=== PATIENT | male | born 1950 | race Two or more races ===

== ENCOUNTER 2019-12-18 11:36 | Outpatient (CLI) | payer MEDICARE, OTHER, SELFPAY ==
--- NOTE | 2019-12-18 12:33 | ECG_ITS ---
Measurements Intervals [place] Rate: 69 P: 203 AK: 112 QRS: -16 QRSD: 98 T: 15 QT: 402 QTc: 431 Interpretive Statements SINUS RHYTHM WITH SHORT AK INTERVAL BASELINE ARTIFACT- I, II, III, AVR, AVL, AVF BORDERLINE ECG Electronically Signed On 12-18-2019 13:52:49 CIPHER EXPERT by Darrian Villegas D.O.
[2019-12-18 13:02] LABS: Anion Gap 8 mmol/L (8-16); Blood Urea Nitrogen 20 mg/dL (9-20); Calcium 9.7 mg/dL (8.4-10.2); Carbon Dioxide 27 mmol/L (22-30); Chloride 105 mmol/L (98-107); Estimated Glomerular Filt Rate 55; Glucose 101 mg/dL (75-110); Potassium 4.2 mmol/L (3.4-5.0); Sodium 140 mmol/L (137-145)
[2019-12-18 13:20] LABS: Hemoglobin A1C 4.7 % (<5.7)
== END 2019-12-18 11:37 | disposition home or self-care (01) ==
PROVIDERS: Anesthesiology; PCP Internal Medicine; Visit Provider Urology
DX: E11.9 Type 2 diabetes mellitus without complications (principal); N52.9 Male erectile dysfunction, unspecified; Z51.81 Encounter for therapeutic drug level monitoring; Z79.899 Other long term (current) drug therapy
CPT/HCPCS: 36415; 80048; 83036; 87086; 87088; 93005

== ENCOUNTER 2020-01-13 00:31 | Outpatient (CLI) | payer MEDICARE, OTHER, SELFPAY ==
[2020-01-13 19:13] LABS: SARS-CoV-2 RNA PCR Negative
== END 2020-01-13 00:32 | disposition home or self-care (01) ==
LOC: ANHCOVIDDT 00:32
PROVIDERS: PCP Internal Medicine; Visit Provider Urology
DX: Z01.818 Encounter for other preprocedural examination (principal); Z20.828 Contact with and (suspected) exposure to other viral communicable diseases
CPT/HCPCS: 87635; C9803; U0003

== ENCOUNTER 2020-01-17 00:38 | Day surgery (SDC) | payer MEDICARE, OTHER, SELFPAY ==
[2019-12-18 12:06] VITALS: BP 164/90; PULSE 78; RESP 20; TEMP 36.7; O2SAT 98; BMI 27.0
--- NOTE | 2020-01-16 09:38 | WPDANESEPPF ---
Anes - Initial Pre Proc Eval Procedure: Operation Date: 01/17/20 10:30 Proposed Procedures p Insertion Inflatable Penile Prosthesis - Arthur Fenton MD Date/Time: 01/16/20 09:38 Surgeon: Arthur Fenton MD Pre Op Diagnosis: ED Patient Data Age: 69 Gender: M Height: 1.78 m Weight: 85.5 kg Last Vital Signs Temp 36.7 C 12/18/19 12:06 Pulse 78 12/18/19 12:06 Resp 20 12/18/19 12:06 BP 164/90 H 12/18/19 12:06 Pulse Ox 98 12/18/19 12:06 Allergies Allergy/AdvReac Type Severity Reaction Status Date / Time zolpidem AdvReac Unknown Hallucinati Verified 01/17/20 09:15 ng Home Medications Medication Instructions Recorded Confirmed Type atorvastatin 40 mg tablet 40 mg PO DAILY 05/08/19 01/17/20 History clopidogrel 75 mg tablet 75 mg PO DAILY 05/08/19 01/17/20 History hydralazine 50 mg tablet 50 mg PO DAILY 05/08/19 01/17/20 History aspirin [Aspirin Low-Strength] 81 mg PO DAILY 12/18/19 01/17/20 History ssdbjfkjd-gekyqvkp-jql-hyalur 1 tablet PO DAILY 12/18/19 01/17/20 History [Move Free Ultra Triple Action] folic acid 1 mg PO DAILY 12/18/19 01/17/20 History glipizide 2.5 mg PO DAILY 12/18/19 01/17/20 History multivitamin [Multi-Vitamins] 1 tablet PO DAILY 12/18/19 01/17/20 History ECG: Date of Service: 12/18/19 Procedure(s): CA 12 lead EKG Accession Number(s): [id number] cc: ~ Measurements Intervals [place] Rate: 69 P: 203 DE: 112 QRS: -16 QRSD: 98 T: 15 QT: 402 QTc: 431 Interpretive Statements SINUS RHYTHM WITH SHORT DE INTERVAL BASELINE ARTIFACT- I, II, III, AVR, AVL, AVF BORDERLINE ECG Electronically Signed On 12-18-2019 13:52:49 GOAT HERDER by Darrian Villegas D.O. 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 Diabetes Former smoker HTN (hypertension) Hypercholesterolemia Osteoarthritis SOB (shortness of breath) Surgical History Surgical History (Updated 01/16/20 @ 09:40 by Rober Briggs MD) S/P CABG (coronary artery bypass graft) Family History Family History (System 03/08/19 @ 16:26 by Yeny Arango) Other Family history of congenital heart disease Social History Social History (Updated 05/08/19 @ 14:28 by Edison Rodrigues [facility]) Smoking packs per day: 1 Smoking cigarettes per day: 20.0 Years smoked: 24 Smoking pack-years: 24.00 Smoking status: Former smoker Tobacco type: cigarettes Smoking end date: 02/09/92 Additional smoking assessment comments: STATES 1 1/2PK/DAY/15/YRS QUIT 1975 Alcohol intake: current Drinks per week: 21 Substance use: never Living arrangements: with family Spiritual care concerns: No Anes - Eval Final PreProcedure Day of Procedure 01/16/20 09:38 Patient weight: overweight Heart: regular rate and rhythm Lungs: clear to auscultation and normal air movement Airway: Mallampati scale class II Neurological: alert and oriented Last oral intake: >/= 8 hours ASA classification: III Emergent: no Anesthetic plan: proceed Anesthesia type and monitoring: general ETT Informed Consent: The patient's anesthetic plan and its attendant risks and benefits were discussed with the patient/family/POA. Questions were solicited and answers provided to the satisfaction of the patient/family/POA.
[2020-01-17] VITALS (10 sets, daily range): BP systolic 145–163; BP diastolic 77–90; PULSE 60–76; RESP 10–20; TEMP 36–36.3; O2SAT 97–100
[2020-01-17] MEDS: LACTATED RINGERS 1,000 ML 30 ML IV CONT ×2 (09:25→13:52)
[2020-01-17 09:36] LABS: Glucose Point of Care 116 (65-105)
--- NOTE | 2020-01-17 10:49 | WPDHPUPDATE1 ---
History and Physical Update Update Date/Time: 01/17/20 10:49 History and Physical has been reviewed, including an updated exam of the patient. There are NO changes in the patient's condition. Risks, benefits, and alternatives have been discussed and questions answered. Patient agrees to proceed with procedure.
[2020-01-17] MEDS: GENTAMICIN SULFATE INJ 430 MG in DEXTROSE 5% 100 ML 100 MG IVPB (10:55)
[2020-01-17] MEDS: LIDOCAINE HCL 1% LOCAL INJ 20 ML VIAL INFILTRATE (12:25)
[2020-01-17] MEDS: fentaNYL CITRATE INJ (*CRX) 100 MCG/2 ML VIAL 25 MCG IV PUSH ×4 (14:07→14:31)
--- NOTE | 2020-01-17 14:46 | PM.PROC ---
Procedure Note - Detailed Date of procedure: 01/17/20 Pre-op diagnosis: ED Post-op diagnosis: same Description of procedure: . Anesthesia: GETA Surgeon: Arthur Fenton MD Estimated blood loss (mL): 50 Drains: No Packing: No Pathology: none sent Complications: No immediate complications Condition: stable Disposition: PACU
[2020-01-17 14:54] LABS: Glucose Point of Care 120 (65-105)
[2020-01-17] MEDS: traMADol HCL (*CRX) 50 MG TABLET PO (16:00)
--- NOTE | 2020-01-17 17:34 | SUR.PHASEII ---
PATIENT INSTRUCTED HOW TO EMPTY REY CATHETER BAG. PT RETURNED DEMONSTRATION.
== END 2020-01-17 16:55 | disposition home or self-care (01) ==
PROVIDERS: PCP Internal Medicine; Visit Provider Urology
PROC: (CPT 54405; principal; 2020-01-17 10:30)
DX: N52.9 Male erectile dysfunction, unspecified (principal); I25.10 Atherosclerotic heart disease of native coronary artery without angina pectoris; E11.9 Type 2 diabetes mellitus without complications; I10 Essential (primary) hypertension; E78.00 Pure hypercholesterolemia, unspecified; Z87.891 Personal history of nicotine dependence; Z95.1 Presence of aortocoronary bypass graft; Z79.02 Long term (current) use of antithrombotics/antiplatelets; Z79.82 Long term (current) use of aspirin
CPT/HCPCS: 54405; A9270; J0330; J1100; J1170; J1580; J2250; J2370; J2405; J2704; J3010; J3370; J7030; J7120

== ENCOUNTER 2020-08-16 07:58 | Emergency (ER) | payer MEDICARE, OTHER, SELFPAY ==
--- NOTE | ~2020-08-16 | US_ITS ---
EXAMINATION: US venous doppler LE RT DATE: 08/16/2020 08:53 INDICATION: Right calf pain. TECHNIQUE: Grayscale ultrasound images without and with compression and Doppler ultrasound images of the right lower extremity veins were obtained. COMPARISON: None. FINDINGS: The visualized portions of right common femoral vein, profunda (deep) femoral vein, femoral vein, pop liteal vein, peroneal veins, posterior tibial veins, and greater saphenous vein outflow are patent. IMPRESSION: 1. No deep venous thrombosis. Reviewed, dictated and finalized at location A.
[2020-08-16 08:06] VITALS: BP 128/80; PULSE 80; RESP 20; TEMP 36.8; O2SAT 98
--- NOTE | 2020-08-16 10:10 | ED.EXTPRO ---
HPI - Extremity Problem General Chief complaint: Extremity Problem,Nontraumatic Stated complaint: x1 day R calf pain, no injury Time Seen by Provider: 08/16/20 08:06 History of Present Illness HPI Narrative: Patient is a 7-year-old male who presents ER with right calf pain. Patient reports he struck his right garcia about 1 week ago and had significant bruising. Yesterday he was walking and started having sharp pain in his proximal calf. No lower extremity swelling. No chest pain or chest pressure or difficulty breathing. No history of blood clots. He is not on any blood thinners but he does take Plavix. No functional deficit of the lower extremity. No swelling of the ankle or knee. Related Data Home Medications Medication Instructions Recorded Confirmed atorvastatin 40 mg tablet 40 mg PO DAILY 05/08/19 01/17/20 clopidogrel 75 mg tablet 75 mg PO DAILY 05/08/19 01/17/20 hydralazine 50 mg tablet 50 mg PO DAILY 05/08/19 01/17/20 aspirin 81 mg PO DAILY 12/18/19 01/17/20 oidxcoicr-xmzwgrkh-pdx-hyalur 1 tablet PO DAILY 12/18/19 01/17/20 [Move Free Ultra Triple Action] folic acid 1 mg PO DAILY 12/18/19 01/17/20 glipizide 2.5 mg PO DAILY 12/18/19 01/17/20 multivitamin 1 tablet PO DAILY 12/18/19 01/17/20 Allergies Allergy/AdvReac Type Severity Reaction Status Date / Time zolpidem AdvReac Unknown Hallucinati Verified 08/16/20 08:10 ng Review of Systems Review of Systems: All systems reviewed & are unremarkable except as noted in HPI and below Constitutional: Constitutional: Denies chills and Denies fever(s) Cardiovascular: Cardiovascular: Denies chest pain and Denies radiating jaw, neck or arm pain Respiratory: Respiratory: Denies dyspnea Musculoskeletal: Musculoskeletal: Denies arthralgias, Denies joint swelling and Reports muscle cramps PMFSH Past Medical History Medical History (Updated 08/16/20 @ 10:12 by Moody Sanches MD) CAD (coronary artery disease) Coronary artery disease involving autologous artery coronary bypass graft with angina pectoris Diabetes Former smoker HTN (hypertension) Hypercholesterolemia Osteoarthritis SOB (shortness of breath) Surgical History Surgical History (Updated 01/16/20 @ 09:40 by Rober Briggs MD) S/P CABG (coronary artery bypass graft) Family History Family History (System 03/08/19 @ 16:26 by Yeny Arango) Other Family history of congenital heart disease Social History Social History (Updated 05/08/19 @ 14:28 by Edison Rodrigues [facility] [address]) Smoking packs per day: 1 Smoking cigarettes per day: 20.0 Years smoked: 24 Smoking pack-years: 24.00 Smoking status: Former smoker Tobacco type: cigarettes Smoking end date: 02/09/92 Additional smoking assessment comments: STATES 1 1/2PK/DAY/15/YRS QUIT 1975 Alcohol intake: current Drinks per week: 21 Substance use: never Gender identity (if verbalized by the patient): Male Spiritual care concerns: No Exam Narrative: Exam Narrative: GENERAL: Well-appearing, well-nourished, and in no acute distress. HEAD: Normocephalic, atraumatic. CHEST: Clear to auscultation. No respiratory distress. HEART: Regular rate and rhythm. Normal peripheral pulses. EXTREMITIES: Normal range of motion. No edema. Mild tenderness posterior calf right side without palpable spasm. Bruising over the right garcia without break in skin. SKIN: Warm, dry, no rash. NEURO: Alert and oriented x3. PSYCH: Normal mood and affect. Course Course Emergency Course: Discussed diagnosis and treatment plan. Patient verbalized understanding. Discharge home. Vital Signs Vital signs: Vital Signs Temperature 98.2 F 08/16/20 08:06 Pulse Rate 80 08/16/20 08:06 Respiratory Rate 20 08/16/20 08:06 Blood Pressure 128/80 08/16/20 08:06 Pulse Oximetry 98 08/16/20 08:06 Temperature 98.2 F 08/16/20 08:06 Pulse Rate 80 08/16/20 08:06 Respiratory Rate 20 08/16/20 08:06 Blood Pressure 128/80 07/0
[2020-08-16 10:20] VITALS: BP 137/83; PULSE 63; RESP 20; O2SAT 99
== END 2020-08-16 10:22 | disposition home or self-care (01) ==
PROVIDERS: Emergency Provider Emergency Medicine; PCP Internal Medicine
DX: S86.911A Strain of unspecified muscle(s) and tendon(s) at lower leg level, right leg, initial encounter (principal); I25.10 Atherosclerotic heart disease of native coronary artery without angina pectoris; E11.9 Type 2 diabetes mellitus without complications; I10 Essential (primary) hypertension; E78.00 Pure hypercholesterolemia, unspecified; M19.90 Unspecified osteoarthritis, unspecified site; Z95.1 Presence of aortocoronary bypass graft; Z79.82 Long term (current) use of aspirin; Z87.891 Personal history of nicotine dependence; Z79.02 Long term (current) use of antithrombotics/antiplatelets; X50.9XXA Other and unspecified overexertion or strenuous movements or postures, initial encounter; Y93.01 Activity, walking, marching and hiking
CPT/HCPCS: 93971; 99284

== ENCOUNTER 2021-10-16 10:54 | Emergency (ER) | payer MEDICARE, OTHER, SELFPAY ==
--- NOTE | ~2021-10-16 | US_ITS ---
EXAMINATION: US venous doppler [facility] DATE: 10/16/2021 13:04 INDICATION: Left lower limb pain. TECHNIQUE: Grayscale ultrasound images without and with compression and Doppler ultrasound images of the left lower extremity veins were obtained. COMPARISON: Left knee radiographs 10/16/2021 FINDINGS: The visualized portions of left common femoral vein, profunda (deep) femoral vein, femoral vein, popl iteal vein, peroneal veins, posterior tibial veins, and greater saphenous vein outflow are patent. Th ere is a small knee joint effusion. IMPRESSION: 1. No deep venous thrombosis. 2. Small knee joint effusion. Reviewed, dictated and finalized at location A.
--- NOTE | ~2021-10-16 | XR_ITS ---
EXAMINATION: XR knee LT 3V DATE: 10/16/2021 11:49 INDICATION: Left knee pain. TECHNIQUE: 3 views of left knee were obtained. COMPARISON: None. FINDINGS: Bone alignment is normal. No fracture. There is serpiginous sclerosis in distal femur and p roximal tibia, consistent with osteonecrosis. There is mild tricompartmental osteoarthritis character ized by tiny osteophytes. No joint space narrowing. No knee joint effusion. IMPRESSION: 1. Mild left knee osteoarthritis. 2. Osteonecrosis involving distal femur and proximal tibia. Reviewed, dictated and finalized at location A.
[2021-10-16 11:13] VITALS: BP 160/85; PULSE 88; RESP 16; TEMP 36.8; O2SAT 98
--- NOTE | 2021-10-16 11:59 | ED.LOWEXIN ---
HPI - Extremity Injury (Lower) General Chief Complaint: Extremity Injury, Lower Stated Complaint: can't put weight on left leg Time Seen by Provider: 10/16/21 11:16 History of Present Illness HPI Narrative: 71-year-old male presents the emergency room with gradual onset of left knee pain. Patient states he woke up 2 days ago experiencing left knee pain. Patient states he is unable to ambulate due to the pain. Patient states he took ibuprofen on one occasion that did not alleviate his symptoms. Denies any known injury or trauma. Related Data Home Medications Medication Instructions Recorded Confirmed clopidogrel 75 mg tablet 75 mg PO DAILY 05/08/19 09/03/21 aspirin 81 mg tablet,delayed 81 mg PO DAILY 12/18/19 09/03/21 release cartilage 40 mg-collagen II-boron 1 tablet PO DAILY 12/18/19 09/03/21 5 mg-hyaluronate sod 3.3 mg tablet (Move Free Ultra Triple Action (boron)) folic acid 1 mg tablet 1 mg PO DAILY 12/18/19 09/03/21 multivitamin 1 tablet PO DAILY 12/18/19 09/03/21 cholecalciferol (vitamin D3) 1,250 50,000 unit PO .qoweek 09/03/21 09/03/21 mcg (50,000 unit) capsule mecobalamin (vitamin B12) 1,000 1,000 mcg sublingual DAILY 09/03/21 09/03/21 mcg disintegrating tablet,sublingual Allergies Allergy/AdvReac Type Severity Reaction Status Date / Time zolpidem AdvReac Unknown Hallucinati Verified 10/16/21 11:53 ng Review of Systems Review of Systems: CONSTITUTIONAL: Denies fever, chills, or sweats. EYES: Denies visual changes, redness, or discharge. ENT: Denies rhinorrhea, congestion, sore throat, or otalgia. CARDIOVASCULAR: Denies chest pain, palpitations, or edema. RESPIRATORY: Denies cough or dyspnea. GASTROINTESTINAL: Denies abdominal pain, nausea, vomiting, or diarrhea. GENITOURINARY: Denies dysuria or hematuria. SKIN: Denies rash or itching. MUSCULOSKELETAL: Reports left knee pain NEUROLOGIC: Denies headache, numbness, dizziness, or weakness. PSYCHIATRIC: Denies anxiety or depression. 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 Encounter to establish care Former smoker HTN (hypertension) Hypercholesterolemia Hyperlipidemia Osteoarthritis SOB (shortness of breath) Surgical History Surgical History S/P CABG (coronary artery bypass graft) Stented coronary artery Family History Family History Mother Heart disease Sibling Heart disease Grandparent Diabetes mellitus Hypertension Other Family history of congenital heart disease Social History Social History Smoking packs per day: 1 Smoking cigarettes per day: 20.0 Years smoked: 24 Smoking pack-years: 24.00 Smoking status: Former smoker Tobacco type: cigarettes Smoking end date: 02/09/92 Additional smoking assessment comments: STATES 1 1/2PK/DAY/15/YRS QUIT 1975 Alcohol intake: current Drinks per week: 21 Alcohol use details: Vodka - daily Substance use: current Gender identity (if verbalized by the patient): Male Spiritual care concerns: No Exam Narrative: GENERAL: Well-appearing, well-nourished, no physical limitations, and in no acute distress. HEAD: Normocephalic, atraumatic. EYES: Conjunctivae normal, PERRLA and EOMI. CHEST: Clear to auscultation. No respiratory distress. No wheezes rales or rhonchi. No tenderness. HEART: Regular rate and rhythm. No murmur heard. Normal peripheral pulses. BACK: Left knee: Tenderness to the popliteal area. No patellar tracking. No joint laxity. Negative Maverick's test. There neurovascular is intact distally. No
[2021-10-16 12:21] LABS: D Dimer 0.25 ug/mL (<0.48)
== END 2021-10-16 13:42 | disposition home or self-care (01) ==
PROVIDERS: Emergency Provider Nurse Practitioner Family; PCP Family Medicine
DX: M25.562 Pain in left knee (principal); I25.729 Atherosclerosis of autologous artery coronary artery bypass graft(s) with unspecified angina pectoris; I10 Essential (primary) hypertension; E11.9 Type 2 diabetes mellitus without complications; E78.00 Pure hypercholesterolemia, unspecified; E78.5 Hyperlipidemia, unspecified; E53.8 Deficiency of other specified B group vitamins; M17.12 Unilateral primary osteoarthritis, left knee; M79.605 Pain in left leg; Z95.1 Presence of aortocoronary bypass graft; Z95.5 Presence of coronary angioplasty implant and graft; Z86.2 Personal history of diseases of the blood and blood-forming organs and certain disorders involving the immune mechanism; Z79.82 Long term (current) use of aspirin; Z79.84 Long term (current) use of oral hypoglycemic drugs; M87.9 Osteonecrosis, unspecified; M25.462 Effusion, left knee
CPT/HCPCS: 36415; 73562; 85380; 93971; 99284

== ENCOUNTER → 2021-12-31 12:54 | Outpatient (CLI) | payer MEDICARE, OTHER, SELFPAY ==
--- NOTE | ~2021-12-31 | MR_ITS ---
EXAMINATION: MR knee LT wo con DATE: 12/31/2021 13:31 INDICATION: Left knee pain TECHNIQUE: Magnetic resonance imaging (MRI) of the left knee was performed without intravenous contra st. Sequences included coronal PD-weighted FSE, coronal PD-weighted FS FSE, sagittal T2-weighted FSE , sagittal PD-weighted FS FSE and axial PD weighted fat saturated FSE. COMPARISON: Left knee radiographs dated 10/16/2021 FINDINGS: Medial compartment: Radial tear/avulsion of the posterior root of the posterior horn of the medial meniscus. There is lorna rphous increased intrasubstance signal which does not contiguously contact the articular surface at t he medial side of the posterior horn and posterior body of the medial meniscus consistent with mucoid degeneration. Deep chondral ulceration with prominent chondral surface and underlying cortical irreg ularity as well as subarticular edema-like signal changes along the anterior weightbearing medial fem oral condyle. Less severe partial thickness cartilage loss with scattered mild surface regularity at the central weightbearing medial femoral condyle and along the medial tibial plateau. There is subart icular curvilinear low signal intensity underlying approximately 1.5 cm diameter region of the centra l to medial aspect of the medial tibial plateau with prominent surrounding edema consistent with nond isplaced subarticular likely a stress fracture resulting from altered weight distribution secondary t o the meniscal tear. Lateral compartment: Longitudinal horizontal tear extending to the superior articular surface of the anterior body and ant erior horn of the lateral meniscus. Articular cartilage is normal. Patellofemoral compartment: Delaminating tears along the deep bone chondral interface extending minimally peripherally from the r egion of deep chondral ulceration at the medial patellar facet along side the apical ridge. There is minimal underlying subarticular edema-like signal change. Additional small region of deep chondral ul ceration without degenerative subchondral changes at the superomedial aspect of the medial trochlea. Ligaments and tendons: Anterior and posterior cruciate ligaments are normal. The fibular collateral ligament complex is norm al. Mild thickening without increased signal or surrounding edema at the proximal medial collateral l igament consistent with mild scarring related to chronic sprain. Enthesophytes and mild tendinopathy at the patellar and intertibial tubercle insertions of the distal quadriceps and patellar tendons. Th e visualized medial and lateral hamstring tendons as well as the iliotibial band are normal. Fluid: Small left knee joint effusion. No loose osteochondral bodies identified. Small Romero's cyst. Osseous/other: Serpiginous sclerotic margins at multiple chronic bone infarcts at the proximal tibial metaphysis and distal femoral metaphysis and distal diaphysis. No other pathologic marrow replacing process. IMPRESSION: 1. Medial and lateral meniscal tears. 2. Osteoarthritis, moderate severity with extensive moderate and high-grade chondral malacia in the m edial compartment and mild with additional smaller regions of moderate and high-grade chondral malaci a in the patellofemoral compartment. 3. Subarticular stress/insufficiency fracture underlying the medial tibial plateau likely related to altered stresses patient resulting from the medial meniscal tear. 4. Chronic osteonecrosis/bone infarcts in the distal femur and proximal tibia. 5. Small left knee joint effusion and small Romero's cyst. Reviewed, dictated and finalized at location A. [place] [facility] IMPRESSION: 1. Medial and lateral meniscal tears. 2. Osteoarthritis, moderate severity with extensive moderate and high-grade cho ndral
== END ==
PROVIDERS: PCP Family Medicine; Visit Provider Orthopaedic Surgery
DX: S83.282A Other tear of lateral meniscus, current injury, left knee, initial encounter (principal); S83.242A Other tear of medial meniscus, current injury, left knee, initial encounter; M17.12 Unilateral primary osteoarthritis, left knee; M94.262 Chondromalacia, left knee; M25.462 Effusion, left knee; M71.22 Synovial cyst of popliteal space [Baker], left knee
CPT/HCPCS: 73721

== ENCOUNTER 2022-01-21 10:13 | Outpatient (CLI) | payer MEDICARE, OTHER, SELFPAY ==
--- NOTE | 2022-01-21 10:20 | ECG_ITS ---
Measurements Intervals [place] Rate: 77 P: [place]: 0 QRS: -32 QRSD: 157 T: 91 QT: 431 QTc: 490 Interpretive Statements LIKELY SINUS RHYTHM MARKED LEFT AXIS DEVIATION [QRS AXIS < -30] LEFT BUNDLE BRANCH BLOCK [120+ ms QRS DURATION, 80+ ms Q/S IN V1/V2, 85+ ms R IN I/aVL/V5/V6] COMPARED TO ECG 12/18/2019 13:06:17 LEFT-AXIS DEVIATION NOW PRESENT LEFT BUNDLE-BRANCH BLOCK NOW PRESENT Electronically Signed On 01-21-2022 13:23:23 ACADEMIC VICE PRESIDENT by Shani Vasques M.D.
[2022-01-21 10:42] LABS: Anion Gap 9 mmol/L (8-16); Blood Urea Nitrogen 19 mg/dL (9-20); Calcium 8.7 mg/dL (8.4-10.2); Carbon Dioxide 24 mmol/L (22-30); Chloride 107 mmol/L (98-107); Estimated Glomerular Filt Rate 54; Glucose 137 mg/dL (65-110); Potassium 4.1 mmol/L (3.4-5.0); Sodium 140 mmol/L (137-145)
== END 2022-01-21 10:14 | disposition home or self-care (01) ==
PROVIDERS: Anesthesiology; PCP Family Medicine; Visit Provider Orthopaedic Surgery
DX: S83.282A Other tear of lateral meniscus, current injury, left knee, initial encounter (principal); X58.XXXA Exposure to other specified factors, initial encounter; I44.7 Left bundle-branch block, unspecified
CPT/HCPCS: 36415; 80048; 93005

== ENCOUNTER 2022-01-27 00:37 | Day surgery (SDC) | payer MEDICARE, OTHER, SELFPAY ==
[2022-01-14 13:15] VITALS: BMI 26.6
--- NOTE | 2022-01-14 13:57 | PC.NURSE ---
PRE-OP INSTRUCTIONS, PLEASE READ CAREFULLY Report to the Outpatient Waiting Room, entrance under the green pavilion located off [facility], at time _1130_ on date _01/27/22_. Planned Procedure Time: _1:30 PM_. Time changes happen often and if your time is changed the preop area will call you the afternoon before. - You and your visitor will be asked to self-screen and do not enter if you have any COVID symptoms. - Only one visitor is requested with a max of two and NO children visitors are allowed at this time. - The patient visitor may be requested to leave or wait in car when not with patient due to distancing restrictions. - A mask is optional within the hospital. Patients may have clear liquids (water, carbonated beverages, clear teas, apple juice) until 3 hours prior to surgery (1030 AM) with a maximum of 20 ounces. - No food from midnight until time of surgery Take the following medications with a SIP of water the morning of surgery: _NONE_ Medications to discontinue per DR. HORNE - _ASPIRIN, CLOPIDOGREL 7 DAYS PRIOR TO SURGERY, Date to take last dose 01/19/22_ Please no deodorant, or body powder the day of surgery. No jewelry (including any body piercings) or valuables the day of surgery, leave them at home. Please take a shower or bath the night before, or the morning of, surgery with an antibacterial soap. Wear comfortable, loose fitting clothing. - Jewelry must be removed prior to entering the operating room. Rings and piercings that are not removed may be cut off. - The hospital will not accept responsibility for valuables. - Please leave all valuables, including medications, at home the day of surgery. If you are going home after surgery, a licensed auto driver must drive you home. - NO public transportation without another adult if you receive anesthesia. - We recommend that an adult stay with you for 24 hours following discharge. - We also recommend that you do not drive, make important decision, drink alcoholic beverages, or take any drugs that were not prescribed by your health care provider for at least 24 hours after your discharge time. Follow any additional instructions given to you from your surgeon. If you or anyone in your household have experienced Covid symptoms in the past week, please notify your surgeon or the nurse liaison at the phone number below for possible testing. Telephone instructions given to _PATIENT_and asked if any additional questions and then verbalized understanding. Patient advised to call surgeon office or pre surgery nurse liaison [phone] if any additional questions.
[2022-01-27] VITALS (8 sets, daily range): BP systolic 129–159; BP diastolic 70–84; PULSE 66–77; RESP 12–22; TEMP 36.8–37; O2SAT 98–100
[2022-01-27] MEDS: ACETAMINOPHEN 500 MG TABLET 1000 MG PO (11:49)
--- NOTE | 2022-01-27 12:02 | WPDANESEPPF ---
Anes - Initial Pre Proc Eval Procedure: Operation Date: 01/27/22 13:30 Proposed Procedures p Left Knee Arthroscopic Partial Medial and Lateral Meniscectomy - Trav Orellana MD Date/Time: 01/27/22 12:02 Surgeon: Trav Orellana MD Pre Op Diagnosis: Medial & Lateral Meniscus Tears Left Knee Patient Data Age: 71 Gender: M Height: 1.78 m Weight: 84.09 kg Allergies Allergy/AdvReac Type Severity Reaction Status Date / Time zolpidem AdvReac Unknown Hallucinati Verified 01/27/22 11:44 ng Home Medications Medication Instructions Recorded Confirmed Type clopidogrel 75 mg tablet 75 mg PO DAILY 05/08/19 01/27/22 History aspirin 81 mg tablet,delayed 81 mg PO DAILY 12/18/19 01/27/22 History release cartilage 40 mg-collagen II-boron 1 tablet PO DAILY 12/18/19 01/14/22 History 5 mg-hyaluronate sod 3.3 mg tablet (Move Free Ultra Triple Action (boron)) losartan 100 mg tablet 100 mg PO DAILY #30 tabs 09/03/21 01/14/22 Rx mecobalamin (vitamin B12) 1,000 1,000 mcg sublingual DAILY 09/03/21 01/14/22 History mcg disintegrating tablet,sublingual atorvastatin 40 mg tablet 100 mg PO DAILY 11/07/21 01/14/22 History folic acid 1 mg tablet 1 mg PO DAILY #90 tabs 11/17/21 01/14/22 Rx glipizide 2.5 mg tablet, extended 2.5 mg PO DAILY #90 tabs 12/09/21 01/14/22 Rx release 24 hr Patient hx anesthesia problems: none Family hx anesthesia problems: none Results Review: All pre-operative results and documents have been reviewed as part of the pre-operative evaluation. [facility] Past Medical History Medical History Anemia B12 deficiency CAD (coronary artery disease) Chronic kidney disease Coronary artery disease involving autologous artery coronary bypass graft with angina pectoris Diabetes Elevated uric acid in blood Elevated uric acid in blood Encounter to establish care Former smoker HTN (hypertension) Hypercholesterolemia Hyperlipidemia Osteoarthritis Pancytopenia SOB (shortness of breath) Surgical History Surgical History S/P CABG (coronary artery bypass graft) Stented coronary artery Family History Family History Mother Heart disease Sibling Heart disease Grandparent Diabetes mellitus Hypertension Other Family history of congenital heart disease Social History Social History Smoking packs per day: 1 Smoking cigarettes per day: 20.0 Years smoked: 24 Smoking pack-years: 24.00 Smoking status: Former smoker Tobacco type: cigarettes Second hand tobacco smoke exposure: No Smoking end date: 02/09/92 Additional smoking assessment comments: STATES 1 1/2PK/DAY/15/YRS QUIT 1974 Alcohol intake: current Drinks per week: 30 Alcohol use details: 3-4 DRINKS NIGHTLY = VODKA Substance use: never Substance use type: does not use Lack of Transportation: No Lack of Food: Never True Current Housing: I Have Housing Concerned About Future Housing: No Difficulty Paying Gas/Electric Bills: No Difficulty Paying for Meds: No Currently Unemployed: No Education: Master's Degree or Higher Difficulty w/ Childcare or Family Care: No Living arrangements: with family Gender identity (if verbalized by the patient): Male Spiritual care concerns: No Anes - Eval Final PreProcedure Day of Procedure 01/27/22 12:02 Patient weight: overweight Heart: regular rate and rhythm Lungs: clear to auscultation and normal air movement Airway: Mallampati scale class II Neurological: alert and oriented Last oral intake: >/= 8 hours ASA classification: III Emergent: no Anesthetic plan: proceed Anesthesia type and monitoring: general LMA Results Review: All pre-operative results and documents have been reviewed as part
[2022-01-27] MEDS: LACTATED RINGERS 1,000 ML 30 ML IV CONT ×2 (12:19→14:15)
[2022-01-27] MEDS: KETOROLAC 15 MG/ML VIAL (*BKC) IV PUSH (12:20)
--- NOTE | 2022-01-27 12:38 | WPDHPUPDATE1 ---
History and Physical Update Update Date/Time: 01/27/22 12:38 PLAN: Proceed with arthroscopic partial medial and lateral meniscectomy, left knee. History and Physical has been reviewed, including an updated exam of the patient. There are NO changes in the patient's condition. Risks, benefits, and alternatives have been discussed and questions answered. Patient agrees to proceed with procedure.
[2022-01-27] MEDS: ceFAZolin 2 GM/D5W 50 ML 2 GM/50 ML BAG IVPB (13:10)
[2022-01-27] MEDS: BUPIVACAINE/EPINEPHRINE 0.5% 10 ML VIAL 30 ML INFILTRATE (13:50)
--- NOTE | 2022-01-27 16:33 | P.OP_ITS ---
Procedure Note - Detailed Date of Procedure 01/27/22 Pre-op Diagnosis Medial & Lateral Meniscus Tears Left Knee Post-op Diagnosis Other (Medial meniscus tear, left knee.) Procedure Performed Arthroscopic partial medial meniscectomy, left knee. Surgeon Trav Orellana MD Anesthesia General Findings Moderate arthritis in the medial compartment. Near complete root tear. The lateral meniscus showed subtle fraying of the anterior horn of the meniscus but no definite complete lesion. Medial femur chondromalacia grade 4, medial tibia grade 3. Lateral femur chondromalacia grade 1, lateral tibia grade 1. Patellar grade 1, trochlea grade 0. Description of Procedure The patient was identified and the surgical site confirmed and signed in the preoperative holding area. Antibiotics were started per protocol. She was brought to the operative room and transferred to the OR table. A general anesthetic was administered. Supine position with the operative lower extremity position in the leg flowers after placement of a well padded tourniquet. The leg support was lowered and the contralateral limb was supported with a soft bolster. The knee was prepped and draped in the usual sterile fashion. A time- out was performed. The portal sites were marked and infiltrated with 0.5% Marcaine 20 mL. The limb was exsanguinated and the tourniquet inflated to 300 mL Hg. Standard inferolateral and inferomedial portals were established. Inflow was obtained with the saline pump. The camera was introduced. Diagnostic inspection of the joint was accomplished. The medial meniscus was debrided with the arthroscopic shaver and punches until stable. The radiofrequency probe was also used for further d?bridement. Lateral meniscus was carefully probed and found to be intact. The tibial cartilage was only mildly soft. The ACL was intact. The arthroscopic instruments were removed. The tourniquet released and wounds closed with subcutaneous 4-0 Monocryl absorbable suture. Steri strips and a sterile dressing were applied. A light elastic wrap was placed. The patient was extubated and brought to the recovery room in stable condition. Estimated Blood Loss 5 Drains No Complications No immediate complications Condition Stable Disposition PACU [facility] Billing Surgery - Charge Forward: Surgery Billing
== END 2022-01-27 16:10 | disposition home or self-care (01) ==
PROVIDERS: PCP Family Medicine; Visit Provider Orthopaedic Surgery
PROC: (CPT 29870; principal; 2022-01-27 13:30)
DX: M23.332 Other meniscus derangements, other medial meniscus, left knee (principal); M94.262 Chondromalacia, left knee; I25.810 Atherosclerosis of coronary artery bypass graft(s) without angina pectoris; I12.9 Hypertensive chronic kidney disease with stage 1 through stage 4 chronic kidney disease, or unspecified chronic kidney disease; E11.22 Type 2 diabetes mellitus with diabetic chronic kidney disease; N18.9 Chronic kidney disease, unspecified; E78.00 Pure hypercholesterolemia, unspecified; Z95.5 Presence of coronary angioplasty implant and graft; Z87.891 Personal history of nicotine dependence; Z79.02 Long term (current) use of antithrombotics/antiplatelets; Z79.84 Long term (current) use of oral hypoglycemic drugs; Z79.82 Long term (current) use of aspirin
CPT/HCPCS: 29881; A9270; J0690; J1885; J2405; J2704; J3010; J7120

== ENCOUNTER 2022-12-28 14:45 | Emergency (ER) | payer MEDICARE, SELFPAY ==
--- NOTE | 2022-12-28 14:47 | ED.URI ---
HPI - URI/Sore Throat General Chief Complaint: Upper Respiratory Infection Stated Complaint: Sinus Time Seen by Provider: 12/28/22 15:12 Source: patient and RN notes reviewed Mode of arrival: ambulatory Limitations: no limitations History of Present Illness HPI Narrative: 72-year-old male presents with concern for COVID exposure. Reports his tested positive today. He reports little to no symptoms. MD elicited complaint: other (COVID exposure) Related Data Home Medications Medication Instructions Recorded Confirmed aspirin 81 mg tablet,delayed 81 mg PO DAILY 03/03/22 12/28/22 release clopidogrel 75 mg tablet 75 mg PO DAILY 03/03/22 12/28/22 cyanocobalamin (vitamin B-12) 1,000 mcg PO DAILY 09/16/22 12/28/22 1,000 mcg tablet Allergies Allergy/AdvReac Type Severity Reaction Status Date / Time zolpidem AdvReac Unknown Hallucinati Verified 12/28/22 14:52 ng Review of Systems Review of Systems: CONSTITUTIONAL: Denies malaise, chills, sweats, or fever. EYES: Denies visual changes, redness, or discharge. ENT: Denies rhinorrhea, congestion, sinus pain, otalgia and sore throat. CARDIOVASCULAR: Denies chest pain, palpitations, or edema. RESPIRATORY: Denies cough. Denies dyspnea. GASTROINTESTINAL: Denies abdominal pain, nausea, vomiting, diarrhea SKIN: Denies rash or itching. MUSCULOSKELETAL: Denies myalgia. NEUROLOGIC: Denies headache. All systems reviewed & are unremarkable except as noted in HPI and below PMFSH Past Medical History Medical History (Updated 12/28/22 @ 15:17 by Lorin Arroyo NP) Acute lateral meniscus tear of left knee Acute medial meniscus tear of left knee Anemia Hemoglobin 11.8 with hematocrit 36.6 and platelets 123 on 10/27/2021. Hemoglobin 11.3 on 09/07/2022. At low risk for fall B12 deficiency (10/27/21) Level low at 385 on 10/27/2021. Level low at 326 with goal greater than 400 on 09/07/2022. BMI 26.0-26.9,adult BMI 27.0-27.9,adult CAD (coronary artery disease) coronary artery disease with stent of the RCA 2019 Chronic kidney disease (10/27/21) BUN 34, creatinine 1.79 with GFR 40 on 10/27/2021. BUN 19, creatinine 1.30 with GFR 54 on 01/21/2022. GFR 22 with creatinine 1.25 with GFR 62 on 02/13/2022. BUN 26, creatinine 1.37 with GFR 55 on 09/07/2022. Chronic kidney disease (CKD) stage G3a/A1, moderately decreased glomerular filtration rate (GFR) between 45-59 mL/min/1.73 square meter and albuminuria creatinine ratio less than 30 mg/g BUN 34, creatinine 1.79 with GFR 40 on 10/27/2021. BUN 19, creatinine 1.30 with GFR 54 on 01/21/2022. GFR 22 with creatinine 1.25 with GFR 62 on 02/13/2022. BUN 26, creatinine 1.37 with GFR 55 on 09/07/2022. Diabetes Fasting glucose 123 on 10/27/2021. Hemoglobin A1c 5.5 on 09/17/2021. urine microalbumin ratio 6 10/27/2021. Fasting glucose 70 with hemoglobin A1c 5.6 on 02/13/2022. Fasting glucose 119 with hemoglobin A1c 5.9 on 09/07/2022. Elevated TSH (09/07/22) TSH elevated at 5.08 on 09/07/2022. Elevated uric acid in blood Elevated uric acid in blood (10/27/21) Uric acid level elevated at 8.6 on 10/27/2021. Level elevated at 8.4 on 09/07/2022. Encounter for prostate cancer screening Encounter to establish care Former smoker HTN (hypertension) Hypercholesterolemia Hyperlipidemia Total cholesterol 189, triglycerides 193, HDL 74, LDL 83 on 10/27/2021. Total cholesterol 174, triglycerides 267, HDL 73 and LDL 60 on 02/13/2022. Cholesterol 174, triglycerides 346, HDL 78 with LDL 45 on 09/07/2022. Orthopedic aftercare Osteoarthritis Overweight (BMI 25.0-29.9) Pancytopenia WBC 3.1, hemoglobin 11.3, hematocrit 35.3, platelets 148 on 09/07/2022. SOB (shortness of breath) Surgical History Surgical History (Updated 09/16/22 @ 11:27 by Ja Klein MD) History of meniscectomy of left knee (~01/27/22) Stented coronary artery Family History Family History Mother Heart dis
[2022-12-28 14:55] VITALS: BP 164/92; PULSE 79; RESP 16; TEMP 37.3; O2SAT 100
== END 2022-12-28 15:20 | disposition home or self-care (01) ==
PROVIDERS: Emergency Provider Nurse Practitioner; PCP Family Medicine
DX: Z20.822 Contact with and (suspected) exposure to COVID-19 (principal); I25.10 Atherosclerotic heart disease of native coronary artery without angina pectoris; I12.9 Hypertensive chronic kidney disease with stage 1 through stage 4 chronic kidney disease, or unspecified chronic kidney disease; E11.22 Type 2 diabetes mellitus with diabetic chronic kidney disease; N18.31 Chronic kidney disease, stage 3a; E78.5 Hyperlipidemia, unspecified; Z87.891 Personal history of nicotine dependence; Z79.899 Other long term (current) drug therapy; Z79.82 Long term (current) use of aspirin
CPT/HCPCS: 87426; 99213; C9803; G0463

== ENCOUNTER 2023-01-01 08:33 | Emergency (ER) | payer MEDICARE, SELFPAY ==
--- NOTE | 2023-01-01 08:42 | ED.URI ---
HPI - URI/Sore Throat General Stated Complaint: sore throat Time Seen by Provider: 01/01/23 08:42 Source: patient Mode of arrival: ambulatory Limitations: no limitations History of Present Illness HPI Narrative: Haile is a 72-year-old male patient presenting to the clinic today with complaints of a sore throat 2-3 days. He reports he tested for COVID back on the 29 of December. Was given prescription for Paxlovid. States he has a lingering sore throat is concerned about strep. He denies any fever or chills. MD elicited complaint: sore throat and nasal congestion Related Data Home Medications Medication Instructions Recorded Confirmed aspirin 81 mg tablet,delayed 81 mg PO DAILY 03/03/22 01/01/23 release clopidogrel 75 mg tablet 75 mg PO DAILY 03/03/22 01/01/23 cyanocobalamin (vitamin B-12) 1,000 mcg PO DAILY 09/16/22 01/01/23 1,000 mcg tablet Allergies Allergy/AdvReac Type Severity Reaction Status Date / Time zolpidem AdvReac Unknown Hallucinati Verified 01/01/23 08:36 ng Review of Systems Review of Systems: Pertinent positives per HPI. Patient denies any fever, chills, rash, headache, visual changes, dizziness, cough, shortness of breath, chest pain, palpitations, nausea, vomiting, diarrhea, constipation, abdominal pain, or any urinary issues. [facility] Past Medical History Medical History Acute lateral meniscus tear of left knee Acute medial meniscus tear of left knee Anemia Hemoglobin 11.8 with hematocrit 36.6 and platelets 123 on 10/27/2021. Hemoglobin 11.3 on 09/07/2022. At low risk for fall B12 deficiency (10/27/21) Level low at 385 on 10/27/2021. Level low at 326 with goal greater than 400 on 09/07/2022. BMI 26.0-26.9,adult BMI 27.0-27.9,adult CAD (coronary artery disease) coronary artery disease with stent of the RCA 2019 Chronic kidney disease (10/27/21) BUN 34, creatinine 1.79 with GFR 40 on 10/27/2021. BUN 19, creatinine 1.30 with GFR 54 on 01/21/2022. GFR 22 with creatinine 1.25 with GFR 62 on 02/13/2022. BUN 26, creatinine 1.37 with GFR 55 on 09/07/2022. Chronic kidney disease (CKD) stage G3a/A1, moderately decreased glomerular filtration rate (GFR) between 45-59 mL/min/1.73 square meter and albuminuria creatinine ratio less than 30 mg/g BUN 34, creatinine 1.79 with GFR 40 on 10/27/2021. BUN 19, creatinine 1.30 with GFR 54 on 01/21/2022. GFR 22 with creatinine 1.25 with GFR 62 on 02/13/2022. BUN 26, creatinine 1.37 with GFR 55 on 09/07/2022. COVID-19 (12/27/22) to positive 12/29/2022 Diabetes Fasting glucose 123 on 10/27/2021. Hemoglobin A1c 5.5 on 09/17/2021. urine microalbumin ratio 6 10/27/2021. Fasting glucose 70 with hemoglobin A1c 5.6 on 02/13/2022. Fasting glucose 119 with hemoglobin A1c 5.9 on 09/07/2022. Elevated TSH (09/07/22) TSH elevated at 5.08 on 09/07/2022. Elevated uric acid in blood Elevated uric acid in blood (10/27/21) Uric acid level elevated at 8.6 on 10/27/2021. Level elevated at 8.4 on 09/07/2022. Encounter for prostate cancer screening Encounter to establish care Former smoker HTN (hypertension) Hypercholesterolemia Hyperlipidemia Total cholesterol 189, triglycerides 193, HDL 74, LDL 83 on 10/27/2021. Total cholesterol 174, triglycerides 267, HDL 73 and LDL 60 on 02/13/2022. Cholesterol 174, triglycerides 346, HDL 78 with LDL 45 on 09/07/2022. Orthopedic aftercare Osteoarthritis Overweight (BMI 25.0-29.9) Pancytopenia WBC 3.1, hemoglobin 11.3, hematocrit 35.3, platelets 148 on 09/07/2022. SOB (shortness of breath) Surgical History Surgical History History of meniscectomy of left knee (~01/27/22) Stented coronary artery Family History Family History Mother Heart disease Sibling Heart disease Grandparent Diabetes mellitus Hypertension Other Family history of
[2023-01-01 08:48] VITALS: BP 142/86; PULSE 70; RESP 18; TEMP 36.6; O2SAT 100
== END 2023-01-01 09:00 | disposition home or self-care (01) ==
PROVIDERS: Emergency Provider Nurse Practitioner Family; PCP Family Medicine
DX: J02.9 Acute pharyngitis, unspecified (principal); U07.1 COVID-19; Z79.82 Long term (current) use of aspirin; Z87.891 Personal history of nicotine dependence; I25.10 Atherosclerotic heart disease of native coronary artery without angina pectoris; I12.9 Hypertensive chronic kidney disease with stage 1 through stage 4 chronic kidney disease, or unspecified chronic kidney disease; E11.22 Type 2 diabetes mellitus with diabetic chronic kidney disease; N18.31 Chronic kidney disease, stage 3a; Z79.84 Long term (current) use of oral hypoglycemic drugs; E78.00 Pure hypercholesterolemia, unspecified; E78.5 Hyperlipidemia, unspecified; M19.90 Unspecified osteoarthritis, unspecified site; Z95.5 Presence of coronary angioplasty implant and graft; Z86.16 Personal history of COVID-19
CPT/HCPCS: 87081; 87880; 99213; G0463

== ENCOUNTER 2023-05-07 13:50 | Outpatient (CLI) | payer MEDICARE, SELFPAY ==
--- NOTE | ~2023-05-07 | CT_ITS ---
EXAMINATION: CT LE LT wo con DATE: 05/07/2023 14:11 INDICATION: Left knee osteoarthritis and pain. Preop. TECHNIQUE: Computed tomography (CT) of the left lower limb was performed without intravenous contrast . Automated exposure control and iterative reconstruction technique were employed. The dose-length pr oduct was 1888.17 mGy-cm. COMPARISON: Left knee radiographs 03/03/2023 FINDINGS: Left hip demonstrates normal bone alignment. No fracture. There is moderate left hip osteoa rthritis. A penile prosthesis is noted. There are widespread arterial calcifications. Left knee demon strates varus angulation. There is sclerosis in distal femur and proximal tibia, consistent with oste onecrosis. There is moderate osteoarthritis of medial and patellofemoral compartments and mild osteoa rthritis of lateral compartment. There is a small knee joint effusion. IMPRESSION: 1. Moderate left knee osteoarthritis. 2. Osteonecrosis in distal femur and proximal tibia. 3. Small left knee joint effusion. 4. Moderate left hip osteoarthritis. Reviewed, dictated and finalized at location E.
== END 2023-05-07 13:51 | disposition home or self-care (01) ==
LOC: ANHIMG 13:51
PROVIDERS: PCP Family Medicine; Visit Provider Orthopaedic Surgery
DX: M17.12 Unilateral primary osteoarthritis, left knee (principal); M16.12 Unilateral primary osteoarthritis, left hip; M25.462 Effusion, left knee
CPT/HCPCS: 73700

== ENCOUNTER 2023-05-28 11:03 | Outpatient (CLI) | payer MEDICARE, SELFPAY ==
--- NOTE | 2023-05-28 11:21 | ECG_ITS ---
SEE SCANNED COPY FOR CONFIRMED REPORT MTDD
[2023-05-28 12:01] LABS: Urine Cotinine NEGATIVE
[2023-05-28 12:16] LABS: Albumin Level 4.8 g/dL (3.5-5.1); Glucose 112 mg/dL (65-110)
[2023-05-28 13:02] LABS: Hemoglobin A1C 6.2 % (<5.7)
== END 2023-05-28 11:04 | disposition home or self-care (01) ==
LOC: ANHCARD 11:09
PROVIDERS: PCP Family Medicine; Visit Provider Orthopaedic Surgery
DX: I25.10 Atherosclerotic heart disease of native coronary artery without angina pectoris (principal); E11.9 Type 2 diabetes mellitus without complications; E78.2 Mixed hyperlipidemia; Z79.899 Other long term (current) drug therapy
CPT/HCPCS: 80307; 82040; 82947; 83036; 93005

== ENCOUNTER 2023-08-09 11:36 | Outpatient (CLI) | payer MEDICARE, SELFPAY ==
[2023-08-09 13:20] LABS: Basophils Percent Auto 0.4 % (0.2-1.2); Eosinophils Absolute Auto 0.1 K/mm3 (0-0.3); Eosinophils Percent Auto 1.9 % (0-4.4); Hemoglobin 13.5 g/dL (14.0-18.0); Immature Granulocyte Absolute 0.02 K/mm3 (0.00-0.031); Immature Granulocyte Percent A 0.4 % (0-0.5); Lymphocytes Absolute Auto 1.41 K/mm3 (0.9-3.2); Lymphocytes Percent Auto 30.5 % (18.3-44.2); Mean Corpuscular HGB Conc 32.1 g/dl (32-36); Mean Corpuscular Hemoglobin 32.1 pg (26-34); Mean Corpuscular Volume 99.8 fl (80-100); Mean Platelet Volume 9.7 fl (7.4-10.4); Monocytes Absolute Auto 0.7 K/mm3 (0.1-0.6); Monocytes Percent Auto 15.3 % (2.6-8.5); Neutrophils Absolute Auto 2.4 K/mm3 (1.3-6.7); Neutrophils Percent Auto 51.5 % (45.5-73.1); Platelet Count Result 162 k/mm3 (150-375); Red Blood Count 4.21 M/mm3 (4.6-6.20); Red Cell Distribution Width 15.1 % (11.5-14.5); White Blood Count 4.6 K/mm3 (4.5-10.0)
[2023-08-09 13:29] LABS: Albumin Level 4.7 g/dL (3.5-5.1)
[2023-08-09 13:33] LABS: INR 1.1; Partial Thromboplastin Time 27.2 Seconds (22.3-36.8); Prothrombin Time 14.7 Seconds (11.1-14.7)
[2023-08-09 13:34] LABS: Anion Gap 10 mmol/L (4-12); Blood Urea Nitrogen 28 mg/dL (9-20); Calcium 9.8 mg/dL (8.4-10.2); Carbon Dioxide 23 mmol/L (22-30); Chloride 109 mmol/L (98-107); Estimated Glomerular Filt Rate 43; Glucose 98 mg/dL (65-110); Potassium 4.6 mmol/L (3.4-5.0); Sodium 142 mmol/L (137-145)
[2023-08-09 13:46] LABS: Hemoglobin A1C 6.2 % (<5.7)
[2023-08-09 13:52] LABS: Urine Cotinine NEGATIVE
[2023-08-09 14:57] LABS: MRSA (PCR) NOT DETECTED (NOT DETECTE)
== END 2023-08-09 11:37 | disposition home or self-care (01) ==
LOC: ANHSURGERY 11:52
PROVIDERS: Anesthesiology; PCP Family Medicine; Visit Provider Orthopaedic Surgery
DX: Z01.818 Encounter for other preprocedural examination (principal); M17.12 Unilateral primary osteoarthritis, left knee; E11.9 Type 2 diabetes mellitus without complications; N18.31 Chronic kidney disease, stage 3a
CPT/HCPCS: 36415; 80048; 80307; 82040; 83036; 85025; 85610; 85730; 87641

== ENCOUNTER 2023-09-02 01:35 | Day surgery (SDC) | payer MEDICARE, SELFPAY ==
[2023-08-09 11:55] VITALS: BMI 29.1
--- NOTE | 2023-08-09 12:30 | PC.NURSE ---
Report to the Outpatient Waiting Room, entrance under the green pavilion located off [facility], at time _8:00 AM on date ___09/02/23____. Planned Procedure Time: _1000 AM . Time changes happen often and if your time is changed the preop area will call you the afternoon before. - You and your visitor will be asked to self-screen and do not enter if you have any COVID symptoms. - A mask is optional within the hospital at this time. Patients may have clear liquids (water, carbonated beverages, clear teas, apple juice) until 3 hours prior to surgery ( 7:00 AM)with a maximum of 20 ounces. - No food from midnight until time of surgery - Infants may have breast milk until 4 hours before surgery, infant formula 6 hours prior to surgery. - Children will be allowed to drink immediately following surgery. If applicable, please bring a bottle or sippy cup to assist with drinking. Juice, water, soda, and popsicles are readily available. For infants on formula, please bring formula the day of surgery. Pacifiers are allowed. Take the following medications with a SIP of water the morning of surgery: __NONE DO NOT STOP ANY OF YOUR OTHER PRESCRIPTION MEDICATIONS PRIOR TO SURGERY ?EXCEPT THE FOLLOWING Medications to discontinue per physician __HOLD CLOPIDOGREL 7 DAYS PRE OP PER DR HORNE.LAST DOSE 08/25/23 __HOLD ALL VITAMINS AND SUPPLEMENTS 3 DAYS PRE OP.LAST DOSE 08/29/23 MAY TAKE TYLENOL IF NEEDED FOR PAIN Please no make-up, nail armenian, hairspray, perfume, deodorant, or body powder the day of surgery. No jewelry (including any body piercings) or valuables the day of surgery, leave them at home. Please take a shower or bath the night before, or the morning of, surgery with an antibacterial soap. Wear comfortable, loose fitting clothing. Children are encouraged to wear pajamas. - Jewelry must be removed prior to entering the operating room. Rings and piercings that are not removed may be cut off. - The hospital will not accept responsibility for valuables. - Please leave all valuables, including medications, at home the day of surgery. If you are going home after surgery, a licensed local [place] truck driver must drive you home. - NO public transportation without another adult if you receive anesthesia. - We recommend that an adult stay with you for 24 hours following discharge. - We also recommend that you do not drive, make important decision, drink alcoholic beverages, or take any drugs that were not prescribed by your health care provider for at least 24 hours after your discharge time. Follow any additional instructions given to you from your surgeon. If you or anyone in your household have experienced Covid symptoms in the past week, please notify your surgeon or the nurse liaison at the phone number below for possible testing. VERBAL AND WRITTEN instructions given to _PATIENT AND PANCHO and asked if any additional questions and then verbalized understanding. Patient advised to call surgeon office or pre surgery nurse liaison [phone] if any additional questions.
[2023-08-09 12:52] VITALS: BP 159/90; PULSE 71; RESP 18; TEMP 37.2; O2SAT 99
[2023-09-02] VITALS (11 sets, daily range): BP systolic 144–172; BP diastolic 79–95; PULSE 65–76; RESP 12–20; TEMP 35.9–37.4; O2SAT 94–100
--- NOTE | ~2023-09-02 | XR_ITS ---
EXAMINATION: [id number] DATE: 09/02/2023 13:04 CDT INDICATION: Postop left knee replacement TECHNIQUE: 2 views left knee FINDINGS: There is a left total knee arthroplasty in expected position. Subcutaneous gas with fluid and air in the joint are consistent with recent surgery. No evidence of periprosthetic fracture. Serp iginous sclerosis of the distal aspect of the femur at the metadiaphysis may represent bone infarct o r enchondroma. IMPRESSION: 1. Recent left total knee arthroplasty. Reviewed, dictated and finalized at location B.
[2023-09-02 08:18] LABS: Glucose Point of Care 98 mg/dl (65-105)
[2023-09-02] MEDS: LACTATED RINGERS 1,000 ML 30 ML IV CONT ×2 (08:47→12:46)
[2023-09-02] MEDS: ACETAMINOPHEN 500 MG TABLET 1000 MG PO (08:47)
--- NOTE | 2023-09-02 09:31 | WPDANESEPPF ---
Anes - Initial Pre Proc Eval Procedure: Operation Date: 09/02/23 10:00 Proposed Procedures p Custom Left Total Knee Arthroplasty - Trav Orellana MD Date/Time: 09/02/23 09:31 Surgeon: Trav Orellana MD Pre Op Diagnosis: Prim O.A. Lt Knee Patient Data Age: 73 Gender: M Height: 1.75 m Weight: 88.2 kg Last Vital Signs Temp 97.2 F L 09/02/23 08:27 Pulse 65 09/02/23 08:27 Resp 18 08/09/23 12:52 BP 161/83 H 09/02/23 08:27 Pulse Ox 99 09/02/23 08:27 O2 Del Method Room Air 09/02/23 08:27 Allergies Allergy/AdvReac Type Severity Reaction Status Date / Time zolpidem AdvReac Unknown Hallucinati Verified 09/02/23 08:26 ng NSAIDS (Non-Steroidal AdvReac Other Verified 09/02/23 08:26 Anti-Inflamma Home Medications Medication Instructions Recorded Confirmed Type atorvastatin 40 mg tablet 40 mg PO DAILY #90 tabs 03/03/22 08/09/23 Rx clopidogrel 75 mg tablet 75 mg PO DAILY 03/03/22 08/09/23 History fenofibrate micronized 130 mg 130 mg PO DAILY #90 caps 09/16/22 08/09/23 Rx capsule folic acid 1 mg tablet 1 mg PO DAILY #90 tabs 10/26/22 08/09/23 Rx irbesartan 150 mg tablet 150 mg PO DAILY #90 tabs 07/12/23 08/09/23 Rx acetaminophen 500 mg capsule 1,000 mg PO Q6H PRN Pain 08/09/23 08/09/23 History cyanocobalamin (vitamin B-12) 2,500 mcg PO DAILY 08/09/23 08/09/23 History 2,500 mcg tablet ergocalciferol (vitamin D2) 1,250 1,250 mcg PO [id number] 08/09/23 08/09/23 History mcg (50,000 unit) capsule glipizide 2.5 mg tablet, extended 2.5 mg PO DAILY 08/09/23 08/09/23 History release 24 hr glucosam 750 mg-chondroi 100 1 tablet PO DAILY 08/09/23 08/09/23 History mg-hyalur 1.65 mg-CF borate 108 mg tablet (Move Shopseen) Laboratory Tests 09/02/23 09/02/23 08:15 08:39 POC Capillary Glucose 98 mg/dl (65-105) Blood Type Pending Antibody Screen Pending Patient hx anesthesia problems: none Family hx anesthesia problems: none Results Review: All pre-operative results and documents have been reviewed as part of the pre-operative evaluation. [facility] Past Medical History Medical History Acute lateral meniscus tear of left knee Acute medial meniscus tear of left knee Acute non-recurrent maxillary sinusitis Anemia Hemoglobin 11.8 with hematocrit 36.6 and platelets 123 on 10/27/2021. Hemoglobin 11.3 on 09/07/2022. Hemoglobin 12.4 on 03/10/2023. At low risk for fall B12 deficiency (10/27/21) Level low at 385 on 10/27/2021. Level low at 326 with goal greater than 400 on 09/07/2022. Level low at 247 with hemoglobin 12.4 on 03/10/2023. Bilateral cataracts BMI 26.0-26.9,adult BMI 27.0-27.9,adult BMI 28.0-28.9,adult CAD (coronary artery disease) coronary artery disease with stent of the RCA 2019 Chronic kidney disease (10/27/21) BUN 34, creatinine 1.79 with GFR 40 on 10/27/2021. BUN 19, creatinine 1.30 with GFR 54 on 01/21/2022. GFR 22 with creatinine 1.25 with GFR 62 on 02/13/2022. BUN 26, creatinine 1.37 with GFR 55 on 09/07/2022. Chronic kidney disease (CKD) stage G3a/A1, moderately decreased glomerular filtration rate (GFR) between 45-59 mL/min/1.73 square meter and albuminuria creatinine ratio less than 30 mg/g BUN 34, creatinine 1.79 with GFR 40 on 10/27/2021. BUN 19, creatinine 1.30 with GFR 54 on 01/21/2022. GFR 22 with creatinine 1.25 with GFR 62 on 02/13/2022. BUN 26, creatinine 1.37 with GFR 55 on 09/07/2022. BUN 31, creatinine 1.82 with GFR 39 on 03/10/2023. BUN 28, creatinine 1.60 with GFR 43 on 08/09/2023. Close exposure to COVID-19 virus COVID-19 (12/27/22) to positive 12/29/2022 Diabetes Fasting glucose 123 on 10/27/2021. Hemoglobin A1c 5.5 on 09/17/2021. urine microalbumin ratio 6 10/27/2021. Fasting glucose 70 with hemoglobin A1c 5.6 on 02/13/2022. Fasting glucose 119 with hemoglobin A1c 5.9 on 09/07/2022. Fasting glucose 112 with hemoglob
--- NOTE | 2023-09-02 09:36 | WPDHPUPDATE1 ---
History and Physical Update Update Date/Time: 09/02/23 09:36 History and Physical has been reviewed, including an updated exam of the patient. There are NO changes in the patient's condition. Risks, benefits, and alternatives have been discussed and questions answered. Patient agrees to proceed with procedure.
--- NOTE | 2023-09-02 09:59 | WPDANESPNB ---
Anes - Peripheral Nerve Block Date/Time: 09/02/23 09:59 I have discussed with the patient/family/POA the placement of a peripheral nerve block for post-operative pain management, including associated risks, benefits, complications, and side effects. Alternative methods of post-operative analgesia were detailed. Questions were solicited and answers provided to the satisfaction of the patient/family/POA. Time-Out: A pre-procedural Time-Out was completed immediately before starting the procedure and confirmed: Patient Identification, Site, Procedure, Patient Position and the Availability of Requisite Equipment. Clinical Indications: Acute post-operative pain management requested by the operative surgeon. Nerve Block Insertion Note Anes-nerve block: adductor canal left Patient position: supine Skin prep: chlorhexidine Needle: 22 gauge, stimulating, insulated echogenic needle. Needle length: 80 mm Technique: ultrasound Injectate: other (Bupiv 0.5%, 15 mls. ) Observations: tolerated well Complications: none Procedure start time:: 955 Procedure end time:: 1
[2023-09-02] MEDS: ceFAZolin 2 GM/D5W 50 ML 2 GM/50 ML BAG IVPB ×2 (10:21→17:34)
[2023-09-02] MEDS: TRANEXAMIC ACID 1,000MG/ISO100 1,000 MG/100 ML BAG 200 MG IVPB (10:38)
[2023-09-02] MEDS: SODIUM CHLORIDE 0.9% IV 38.7 ML, MORPHINE SULFATE INJ (*CRX) 2 MG, ROPivacaine HCL 1% 2... INFILTRATE (10:59)
[2023-09-02 12:55] LABS: Glucose Point of Care 125 mg/dl (65-105)
[2023-09-02] MEDS: fentaNYL CITRATE INJ (*CRX) 100 MCG/2 ML VIAL 25 MCG IV PUSH ×8 (12:58→13:33)
--- NOTE | 2023-09-02 13:06 | P.OP_ITS ---
Procedure Note - Detailed Date of Procedure 09/02/23 Pre-op Diagnosis Left knee osteoarthritis Post-op Diagnosis Same Procedure Performed Total knee arthroplasty, left knee Surgeon Trav Orellana MD Grounds Manager Linette Ceballos PA-C Anesthesia General and Regional (Subsartorial block.) Findings Excellent bone quality. Atypical tibial tubercle attachment, fairly prominent and lateral. Planning software indicated a 14 mm lateral resection. Minus two resection taken. Significant [place] varus. Slight varus placed in the tibial resection. Anatomic slope 14?. Implant placed at 10?. Description of Procedure Preoperative antibiotics were given. The limb was prepped and draped in the usual sterile fashion with a well-padded tourniquet high on the thigh. The limb was exsanguinated and the tourniquet inflated to 300 mmHg, during exposure and cementation. A longitudinal incision was created just medial to the patella. A trivector approach to the knee was performed. Arthrotomy was taken down through the joint capsule. No significant releases were initially taken. The femur was exposed and the F1 jig was applied. The coring tool was used to remove the cartilage for the F2 jig to sit flush with the bone. The jig was pinned and the distal cut carefully taken. Caliper measurements confirmed appropriate bony resections according to the preoperative templated plan. The F4 cutting jig for the femur was applied, at the standard rotation. The AP and anterior chamfer cuts were taken. The F5 jig was applied and the posterior chamfer cuts were taken. The tibia was prepared using the T1 jig, after removing cartilage for the jig contact points. Proper alignment was checked with the alignment jossue. The tibia was cut using the T1u guide. Gap balancing was performed. Gap measurements were taken and the knee was trialed. Excellent alignment and soft tissue balancing was confirmed. The posterior cruciate ligament was recessed along the proximal tibia. The patella was cut for resurfacing. Three lug holes were drilled. Meniscal remnants were removed. The trial components were assembled. Excellent range of motion and proper soft tissue balancing were confirmed throughout the full range of motion. Patellar tracking was excellent. The knee was copiously irrigated periodically throughout the procedure. The real implants were cemented into position. Excess cement was carefully removed. The wound was closed in layers with interrupted #1 Vicryl suture, 2-0 strata fix suture, 0 strata fix suture, 2-0 strata fix suture. Steri-Strips placed on the skin with the knee flexed. Sterile bulky dressing applied. The patient was brought to the recovery room in stable condition. There were no complications. Physician assisted living assistant, Linette Ceballos PA-C, required for surgery; including patient positioning, draping, tissue retraction, maintaining instrument position, cement removal, wound closure, and dressing placement. Implants Conform[employer] Custom total knee arthroplasty. Cemented. Cruciate retaining. 6C insert. 41 mm oval patella. Estimated Blood Loss 150 Drains No Complications No immediate complications Condition Stable Disposition PACU [facility] Billing Surgery - Charge Forward: Surgery Billing
[2023-09-02] MEDS: ONDANSETRON INJ 4 MG/2 ML VIAL IV PUSH ×3 (13:14→18:24)
[2023-09-02 14:35] LABS: Basophils Percent Auto 0.6 % (0.2-1.2); Eosinophils Absolute Auto 0.1 K/mm3 (0-0.3); Eosinophils Percent Auto 1.2 % (0-4.4); Hematocrit 37.9 % (42.0-52.0); Hemoglobin 12.1 g/dL (14.0-18.0); Immature Granulocyte Absolute 0.02 K/mm3 (0.00-0.031); Immature Granulocyte Percent A 0.4 % (0-0.5); Lymphocytes Absolute Auto 0.88 K/mm3 (0.9-3.2); Lymphocytes Percent Auto 17.2 % (18.3-44.2); Mean Corpuscular HGB Conc 31.9 g/dl (32-36); Mean Corpuscular Hemoglobin 32.2 pg (26-34); Mean Corpuscular Volume 100.8 fl (80-100); Mean Platelet Volume 9.7 fl (7.4-10.4); Monocytes Absolute Auto 0.6 K/mm3 (0.1-0.6); Monocytes Percent Auto 11.5 % (2.6-8.5); Neutrophils Absolute Auto 3.5 K/mm3 (1.3-6.7); Neutrophils Percent Auto 69.1 % (45.5-73.1); Platelet Count Result 135 k/mm3 (150-375); Red Blood Count 3.76 M/mm3 (4.6-6.20); Red Cell Distribution Width 14.5 % (11.5-14.5); White Blood Count 5.1 K/mm3 (4.5-10.0)
[2023-09-02 14:45] LABS: Anion Gap 11 mmol/L (4-12); Blood Urea Nitrogen 32 mg/dL (9-20); Calcium 8.9 mg/dL (8.4-10.2); Carbon Dioxide 20 mmol/L (22-30); Chloride 107 mmol/L (98-107); Estimated CRCL calculation 31 ml/min; Estimated Glomerular Filt Rate 35; Glucose 119 mg/dL (65-110); Potassium 4.8 mmol/L (3.4-5.0); Sodium 138 mmol/L (137-145)
--- NOTE | 2023-09-02 16:03 | ADMGEN ---
This patient, Haile Omalley, was admitted to 3 [facility] Surg Room 301-01. Patient/family oriented to hospital policies and general routines including ID bracelet, bed and alarms, visiting hours, pain management, procedures, bathroom and other care routines, personal items, smoking policy, room service/diet, and visiting hours. Information on how to activate the Rapid Response Team has been discussed. Patient/Family are encouraged to report perceived risks to care and to ask questions if they do not understand what they are told or what they should do.
[2023-09-02] MEDS: SODIUM CHLORIDE 0.9% IV 1,000 ML 125 ML IV CONT (17:26)
[2023-09-02] MEDS: BENZOCAINE/MENTHOL (*BKC) 18 EA LOZENGE 1 LOZENGE PO (17:27)
[2023-09-02 21:25] LABS: Glucose Point of Care 144 mg/dl (65-105)
[2023-09-02] MEDS: FAMOTIDINE 20 MG TABLET PO (22:41)
[2023-09-02] MEDS: ACETAMINOPHEN 325 MG TABLET 650 MG PO (22:41)
[2023-09-02] MEDS: ASPIRIN 81 MG ENTERIC TABLET PO (22:42)
[2023-09-02] MEDS: oxyCODONE/ACETAMINOPHEN (*CRX) 5-325 MG TABLET 1 TABLET PO (22:44)
[2023-09-03 01:13] VITALS: BP 131/71; PULSE 76; RESP 20; TEMP 36.2; O2SAT 99
[2023-09-03] MEDS: ceFAZolin 2 GM/D5W 50 ML 2 GM/50 ML BAG IVPB ×2 (02:46→09:34)
[2023-09-03 04:15] VITALS: BP 140/82; PULSE 75; RESP 18; TEMP 36.6; O2SAT 98
[2023-09-03] MEDS: ACETAMINOPHEN 325 MG TABLET 650 MG PO (05:55)
[2023-09-03 06:28] LABS: Basophils Percent Auto 0.3 % (0.2-1.2); Eosinophils Percent Auto 0.5 % (0-4.4); Hematocrit 33.6 % (42.0-52.0); Hemoglobin 10.8 g/dL (14.0-18.0); Immature Granulocyte Absolute 0.02 K/mm3 (0.00-0.031); Immature Granulocyte Percent A 0.3 % (0-0.5); Lymphocytes Absolute Auto 0.57 K/mm3 (0.9-3.2); Lymphocytes Percent Auto 9.5 % (18.3-44.2); Mean Corpuscular HGB Conc 32.1 g/dl (32-36); Mean Corpuscular Hemoglobin 32.4 pg (26-34); Mean Corpuscular Volume 100.9 fl (80-100); Mean Platelet Volume 10.1 fl (7.4-10.4); Monocytes Absolute Auto 0.6 K/mm3 (0.1-0.6); Monocytes Percent Auto 10.5 % (2.6-8.5); Neutrophils Absolute Auto 4.7 K/mm3 (1.3-6.7); Neutrophils Percent Auto 78.9 % (45.5-73.1); Platelet Count Result 129 k/mm3 (150-375); Red Blood Count 3.33 M/mm3 (4.6-6.20); Red Cell Distribution Width 14.3 % (11.5-14.5)
[2023-09-03 06:36] LABS: Anion Gap 11 mmol/L (4-12); Blood Urea Nitrogen 29 mg/dL (9-20); Calcium 8.2 mg/dL (8.4-10.2); Carbon Dioxide 23 mmol/L (22-30); Chloride 104 mmol/L (98-107); Estimated CRCL calculation 33 ml/min; Estimated Glomerular Filt Rate 37; Glucose 132 mg/dL (65-110); Potassium 4.3 mmol/L (3.4-5.0); Sodium 138 mmol/L (137-145)
[2023-09-03] MEDS: oxyCODONE/ACETAMINOPHEN (*CRX) 5-325 MG TABLET 1 TABLET PO (06:41)
[2023-09-03 07:43] LABS: Glucose Point of Care 148 mg/dl (65-105)
[2023-09-03 07:44] VITALS: BP 122/74; PULSE 70; RESP 18; TEMP 36.2; O2SAT 98
[2023-09-03] MEDS: ONDANSETRON INJ 4 MG/2 ML VIAL IV PUSH (08:39)
[2023-09-03] MEDS: oxyCODONE/ACETAMINOPHEN (*CRX) 10-325 MG TABLET 1 TAB PO (08:39)
[2023-09-03] MEDS: ASPIRIN 81 MG ENTERIC TABLET PO (08:40)
[2023-09-03] MEDS: ATORVASTATIN 40 MG TABLET PO (08:40)
[2023-09-03] MEDS: polyethylene glycoL 3350 17 GM POWD.PACK PO (08:40)
[2023-09-03] MEDS: FENOFIBRATE NANOCRYSTALLIZED 145 MG TABLET PO (08:40)
[2023-09-03] MEDS: glipiZIDE XL 2.5 MG TAB.ER.24 PO (08:40)
[2023-09-03] MEDS: SENNA/DOCUSATE SODIUM TABLET 2 TAB PO (08:40)
[2023-09-03] MEDS: IRBESARTAN 150 MG TABLET PO (08:41)
[2023-09-03] MEDS: FAMOTIDINE 20 MG TABLET PO (08:41)
--- NOTE | 2023-09-03 09:37 | WPDANESPN ---
Anes - Prog Note Post-Op Date/Time: 09/03/23 09:37 Cardiovascular status: normal Respiratory status: normal Airway patency: baseline Mental status: baseline Post-Op hydration status: normal Vital Signs: Last Vital Signs Temp 36.2 C L 09/03/23 07:44 Pulse 70 09/03/23 07:44 Resp 18 09/03/23 07:44 BP 122/74 09/03/23 07:44 Pulse Ox 98 09/03/23 07:44 O2 Del Method Room Air 09/03/23 08:00 O2 Flow Rate 8 09/02/23 12:46 Pain Score (VAS): 0 I/O: Intake & Output 09/02/23 09/03/23 09/03/23 23:59 07:59 15:59 Intake Total 110 200 180 Output Total 300 300 Balance 110 -100 -120 Laboratory Tests 09/03/23 05:39 09/03/23 05:39 09/02/23 09/02/23 09/02/23 08:39 12:52 14:23 WBC 5.1 RBC 3.76 L Hgb 12.1 L Hct 37.9 L MCV 100.8 H MCH 32.2 MCHC 31.9 L RDW 14.5 Plt Count 135 L MPV 9.7 Immature Gran % (Auto) 0.4 Neut % (Auto) 69.1 Lymph % (Auto) 17.2 L [place] % (Auto) 11.5 H Eos % (Auto) 1.2 Baso % (Auto) 0.6 Lymph # (Auto) 0.88 L [place] # (Auto) 0.6 Eos # (Auto) 0.1 Baso # (Auto) 0.0 Abs Immat Gran (auto) 0.02 Absolute Neuts (auto) 3.5 Absolute Nucleated RBC 0.000 Nucleated RBC % 0.0 Sodium 138 Potassium 4.8 Chloride 107 Carbon Dioxide 20 L Anion Gap 11 BUN 32 H Creatinine 1.90 H Estim Creat Clear Calc 31 Estimated GFR 35 L Glucose 119 H POC Capillary Glucose 125 H Calcium 8.9 Blood Type A Positive Antibody Screen Negative 09/02/23 09/03/23 09/03/23 20:18 05:39 07:36 WBC 6.0 RBC 3.33 L Hgb 10.8 L Hct 33.6 L MCV 100.9 H MCH 32.4 MCHC 32.1 RDW 14.3 Plt Count 129 L MPV 10.1 Immature Gran % (Auto) 0.3 Neut % (Auto) 78.9 H Lymph % (Auto) 9.5 L [place] % (Auto) 10.5 H Eos % (Auto) 0.5 Baso % (Auto) 0.3 Lymph # (Auto) 0.57 L [place] # (Auto) 0.6 Eos # (Auto) 0.0 Baso # (Auto) 0.0 Abs Immat Gran (auto) 0.02 Absolute Neuts (auto) 4.7 Absolute Nucleated RBC 0.000 Nucleated RBC % 0.0 Sodium 138 Potassium 4.3 Chloride 104 Carbon Dioxide 23 Anion Gap 11 BUN 29 H Creatinine 1.80 H Estim Creat Clear Calc 33 Estimated GFR 37 L Glucose 132 H POC Capillary Glucose 144 H 148 H Calcium 8.2 L Blood Type Antibody Screen Post-procedural complaints: none Patient Feedback: Patient satisfied with anesthetic care.
[2023-09-03 11:22] LABS: Glucose Point of Care 179 mg/dl (65-105)
[2023-09-03 11:44] VITALS: BP 134/68
--- NOTE | 2023-09-03 12:19 | PM.DS ---
DS: Admitting Diagnosis Discharge Date 09/03/23 Admitting Diagnosis Knee arthritis. DS: Discharge Diagnosis Discharge Diagnosis (1) Status post total left knee replacement: Code(s): Z96.652 - Presence of left artificial knee joint Status: Acute Plan Postop day 1: Left total knee arthroplasty. Patient tolerated procedure well. No complications. Pain manageable with pain medication. No numbness or tingling. We had a lengthy discussion regarding postoperative wound care, limitations, expectations, and exercises. Patient shows good understanding. He has had initial physical therapy and is tolerating it well. DVT prophylaxis: 81 mg baby aspirin b.i.d. for 14 days. Pain medication: Percocet. Patient has followup appointment with Dr. Orellana in 3 weeks. DS: Summary Hospital Course Reason for hospitalization: Total knee arthroplasty Hospital Course: Patient tolerated procedure well. Has had initial PT/OT. No complications. Pain well managed. Status at Discharge Functional status at discharge: uses cane/walker Overall status at discharge: patient is progressing back to baseline Time Spent with Patient Time attestation: Total time spent providing and/or coordinating discharge services: Exam Narrative: Normal weight Male. Resting comfortably in bed. No acute distress. A&O x3. Wearing compression socks bilaterally. Dressing intact with no drainage. Moderate swelling. No ecchymosis. No erythema. No hematoma. Good early range of motion. Calf nontender. Neurologic status intact. No varicosities. Distal pulses palpable. DS: Data Data Completed and Pending Labs on day of discharge: Labs from last 24 hours 09/03/23 09/03/23 09/03/23 11:18 07:36 05:39 WBC 6.0 RBC 3.33 L Hgb 10.8 L Hct 33.6 L MCV 100.9 H MCH 32.4 MCHC 32.1 RDW 14.3 Plt Count 129 L MPV 10.1 Immature Gran % (Auto) 0.3 Neut % (Auto) 78.9 H Lymph % (Auto) 9.5 L [place] % (Auto) 10.5 H Eos % (Auto) 0.5 Baso % (Auto) 0.3 Lymph # (Auto) 0.57 L [place] # (Auto) 0.6 Eos # (Auto) 0.0 Baso # (Auto) 0.0 Abs Immat Gran (auto) 0.02 Absolute Neuts (auto) 4.7 Absolute Nucleated RBC 0.000 Nucleated RBC % 0.0 Sodium 138 Potassium 4.3 Chloride 104 Carbon Dioxide 23 Anion Gap 11 BUN 29 H Creatinine 1.80 H Estim Creat Clear Calc 33 Estimated GFR 37 L Glucose 132 H POC Capillary Glucose 179 H 148 H Calcium 8.2 L 09/02/23 09/02/23 09/02/23 20:18 14:23 12:52 WBC 5.1 RBC 3.76 L Hgb 12.1 L Hct 37.9 L MCV 100.8 H MCH 32.2 MCHC 31.9 L RDW 14.5 Plt Count 135 L MPV 9.7 Immature Gran % (Auto) 0.4 Neut % (Auto) 69.1 Lymph % (Auto) 17.2 L [place] % (Auto) 11.5 H Eos % (Auto) 1.2 Baso % (Auto) 0.6 Lymph # (Auto) 0.88 L [place] # (Auto) 0.6 Eos # (Auto) 0.1 Baso # (Auto) 0.0 Abs Immat Gran (auto) 0.02 Absolute Neuts (auto) 3.5 Absolute Nucleated RBC 0.000 Nucleated RBC % 0.0 Sodium 138 Potassium 4.8 Chloride 107 Carbon Dioxide 20 L Anion Gap 11 BUN 32 H Creatinine 1.90 H Estim Creat Clear Calc 31 Estimated GFR 35 L Glucose 119 H POC Capillary Glucose 144 H 125 H Calcium 8.9 Discharge Plan Discharge Patient Disposition: Home, Self-Care Discharge Instructions: See green instruction sheets Stand Alone Forms: General Discharge Instructions Follow-up/Referrals: Linette Ceballos PA [Physician Mine Expert] - Discharge Medications: New aspirin 81 mg tablet,delayed release (DR/EC) 81 mg PO BID 14 Days Qty: 28 0RF oxycodone-acetaminophen 5-325 mg tablet 1 - 2 tablet PO Q4-6H MDD 6 PRN (Reason: pain) Qty: 30 0RF Continued atorvastatin 40 mg tablet 40 mg PO DAILY Qty: 90 3RF fenofibrate micronized 130 mg capsule 130 mg PO DAILY Qty: 90 3RF glipizide 2.5 mg tablet e
--- NOTE | 2023-09-03 13:14 | PCPTNOTE ---
On 09/03/23, the student, [Brooke Valdez], provided care and completed [employer] documentation on this patient. I have reviewed the student's documentation and agree with the findings.
== END 2023-09-03 13:40 | disposition home or self-care (01) ==
LOC: ANHSURGERY 13:08 → ANH3MEDSUR 14:01
PROVIDERS: Physician Assistant Surgical; PCP Family Medicine; Visit Provider Orthopaedic Surgery
PROC: (CPT 27447; principal; 2023-09-02 10:00)
DX: M17.12 Unilateral primary osteoarthritis, left knee (principal); G89.18 Other acute postprocedural pain; E53.8 Deficiency of other specified B group vitamins; D64.9 Anemia, unspecified; I25.10 Atherosclerotic heart disease of native coronary artery without angina pectoris; I12.9 Hypertensive chronic kidney disease with stage 1 through stage 4 chronic kidney disease, or unspecified chronic kidney disease; E11.22 Type 2 diabetes mellitus with diabetic chronic kidney disease; N18.31 Chronic kidney disease, stage 3a; E78.00 Pure hypercholesterolemia, unspecified; Z95.5 Presence of coronary angioplasty implant and graft; Z87.891 Personal history of nicotine dependence; Z79.02 Long term (current) use of antithrombotics/antiplatelets; Z79.84 Long term (current) use of oral hypoglycemic drugs
CPT/HCPCS: 27447; 64447; 36415; 73560; 80048; 82948; 85025; 86850; 86900; 86901; 97110; 97116; 97161; 97165; 97530; 97535; A9270; C1713; C1776; J0171; J0690; J1170; J2270; J2405; J2704; J2795; J3010; J7030; J7120

== ENCOUNTER 2023-09-16 14:50 | Outpatient (CLI) | payer MEDICARE, SELFPAY ==
--- NOTE | ~2023-09-16 | CT_ITS ---
EXAMINATION: CT LE RT wo con DATE: 09/16/2023 15:16 INDICATION: Unilateral primary osteoarthritis of right knee. TECHNIQUE: Computed tomography (CT) of the right lower limb was performed without intravenous contras t. Automated exposure control and iterative reconstruction technique were employed. The dose-length p roduct was 1894.64 mGy-cm. COMPARISON: Right knee radiographs 03/03/2023 FINDINGS: There is moderate right hip osteoarthritis. There is varus angulation at right knee. There is osteonecrosis involving the distal femur. There is severe osteoarthritis of medial compartment, mi ld osteoarthritis of lateral compartment, and moderate osteoarthritis of patellofemoral compartment. There is a small knee joint effusion. IMPRESSION: 1. Severe right knee osteoarthritis. 2. Osteonecrosis of distal right femur. 3. Small right knee joint effusion. 4. Moderate right hip osteoarthritis. Reviewed, dictated and finalized at location A.
== END 2023-09-16 14:51 | disposition home or self-care (01) ==
LOC: ANHIMG 14:50
PROVIDERS: PCP Family Medicine; Visit Provider Orthopaedic Surgery
DX: M17.11 Unilateral primary osteoarthritis, right knee (principal); M16.11 Unilateral primary osteoarthritis, right hip; M25.461 Effusion, right knee
CPT/HCPCS: 73700

== ENCOUNTER 2023-10-21 11:45 | Outpatient (CLI) | payer MEDICARE, SELFPAY ==
--- NOTE | ~2023-10-21 | XR_ITS ---
XR knee LT 3V Ordering provider: KIMBERLYN Jarvis History: . KNEE REPLACEMENT X2 MONTHS AGO . Comparison: August 05, 2022 FINDINGS: BONES: No acute fracture or dislocation. Bone infarct in the distal femur. JOINT SPACES: Total knee arthroplasty. SOFT TISSUES: Normal. IMPRESSION: No acute osseous abnormality left knee. Bone infarct in the distal femur. Total knee arthroplasty. Reviewed, dictated and finalized at location A.
== END 2023-10-21 11:46 | disposition home or self-care (01) ==
PROVIDERS: PCP Family Medicine; Visit Provider Physician Assistant Surgical
DX: Z96.652 Presence of left artificial knee joint (principal)
CPT/HCPCS: 73562

== ENCOUNTER 2023-11-30 10:19 | Outpatient (CLI) | payer MEDICARE, SELFPAY ==
[2023-11-30 11:23] LABS: Urine Cotinine NEGATIVE
[2023-11-30 11:52] LABS: Basophils Percent Auto 0.7 % (0.2-1.2); Eosinophils Absolute Auto 0.2 K/mm3 (0-0.3); Eosinophils Percent Auto 3.6 % (0-4.4); Hematocrit 41.6 % (42.0-52.0); Hemoglobin 13.6 g/dL (14.0-18.0); Immature Granulocyte Absolute 0.01 K/mm3 (0.00-0.031); Immature Granulocyte Percent A 0.2 % (0-0.5); Lymphocytes Absolute Auto 1.64 K/mm3 (0.9-3.2); Lymphocytes Percent Auto 39.7 % (18.3-44.2); Mean Corpuscular HGB Conc 32.7 g/dl (32-36); Mean Corpuscular Hemoglobin 33.9 pg (26-34); Mean Corpuscular Volume 103.7 fl (80-100); Mean Platelet Volume 9.8 fl (7.4-10.4); Monocytes Absolute Auto 0.6 K/mm3 (0.1-0.6); Monocytes Percent Auto 14.8 % (2.6-8.5); Neutrophils Absolute Auto 1.7 K/mm3 (1.3-6.7); Platelet Count Result 163 k/mm3 (150-375); Red Blood Count 4.01 M/mm3 (4.6-6.20); Red Cell Distribution Width 14.7 % (11.5-14.5); White Blood Count 4.1 K/mm3 (4.5-10.0)
[2023-11-30 12:05] LABS: Albumin Level 4.8 g/dL (3.5-5.1)
[2023-11-30 12:07] LABS: INR 1.1; Prothrombin Time 14.3 Seconds (11.1-14.7)
[2023-11-30 12:08] LABS: Partial Thromboplastin Time 28.7 Seconds (22.3-36.8)
[2023-11-30 12:09] LABS: Anion Gap 13 mmol/L (4-12); Blood Urea Nitrogen 31 mg/dL (9-20); Carbon Dioxide 21 mmol/L (22-30); Chloride 106 mmol/L (98-107); Estimated Glomerular Filt Rate 37; Glucose 131 mg/dL (65-110); Potassium 4.4 mmol/L (3.4-5.0); Sodium 140 mmol/L (137-145)
[2023-11-30 13:31] LABS: MRSA (PCR) NOT DETECTED (NOT DETECTE)
== END 2023-11-30 10:20 | disposition home or self-care (01) ==
LOC: ANHSURGERY 10:26
PROVIDERS: Anesthesiology; PCP Family Medicine; Visit Provider Orthopaedic Surgery
DX: Z01.812 Encounter for preprocedural laboratory examination (principal); M17.11 Unilateral primary osteoarthritis, right knee; E11.22 Type 2 diabetes mellitus with diabetic chronic kidney disease; N18.31 Chronic kidney disease, stage 3a
CPT/HCPCS: 36415; 80048; 80307; 82040; 85025; 85610; 85730; 86850; 86900; 86901; 87641

== ENCOUNTER 2023-12-07 01:53 | Day surgery (SDC) | payer MEDICARE, SELFPAY ==
--- NOTE | 2023-11-26 11:40 | PC.NURSE ---
Report to the Outpatient Waiting Room, entrance under the green pavilion located off [facility], at time __6AM on date _12/07/23 . Planned Procedure Time: _7:30 AM .? Time changes happen often and if your time is changed the preop area will call you the afternoon before. - You and your visitor will be asked to self-screen and do not enter if you have any COVID symptoms. Please call surgeon if you need to reschedule. - A mask is optional within the hospital at this time. Patients may have clear liquids (water, carbonated beverages, clear teas, apple juice) until 3 hours prior to surgery ( 4:30 AM)with a maximum of 20 ounces. - No food from midnight until time of surgery and no smoking - Infants may have breast milk until 4 hours before surgery, infant formula 6 hours prior to surgery. - Children will be allowed to drink immediately following surgery.? If applicable, please bring a bottle or sippy cup to assist with drinking. Juice, water, soda, and popsicles are readily available.? For infants on formula, please bring formula the day of surgery.? Pacifiers are allowed. Take only the following medications with a SIP of water on the morning of surgery: ____NONE DO NOT STOP ANY OF YOUR OTHER PRESCRIPTION MEDICATIONS PRIOR TO SURGERY EXCEPT THE FOLLOWING Medications to discontinue per physician _HOLD PLAVIX 7 DAYS PRE OP PER DR HORNE .LAST DOSE 11/29/23 HOLD ALL VITAMINS AND SUPPLEMENTS 3 DAYS PRE OP .LAST DOSE 12/03/23 Please no make-up, nail costa rican, hairspray, perfume, deodorant, or body powder the day of surgery.? No jewelry (including any body piercings) or valuables the day of surgery, leave them at home.? Please take a shower or bath the night before, or the morning of, surgery with an antibacterial soap.? Wear comfortable, loose fitting clothing.? Children are encouraged to wear pajamas. - Jewelry must be removed prior to entering the operating room.? Rings and piercings that are not removed may be cut off. - The hospital will not accept responsibility for valuables.? - Please leave all valuables, including medications, at home the day of surgery. If you are going home after surgery, a licensed route delivery driver must drive you home.? - NO public transportation without another adult if you receive anesthesia. - We recommend that an adult stay with you for 24 hours following discharge. - We also recommend that you do not drive, make important decision, drink alcoholic beverages, or take any drugs that were not prescribed by your health care provider for at least 24 hours after your discharge time. For Pediatric surgeries, we recommend two adults accompany the child home. Follow any additional instructions given to you from your surgeon. Telephone instructions given to __PATIENT and asked if any additional questions and then verbalized understanding. Patient advised to call surgeon office or pre surgery nurse liaison [phone] if any additional questions.
[2023-11-26 11:55] VITALS: BMI 29.1
[2023-12-07] VITALS (15 sets, daily range): BP systolic 145–169; BP diastolic 71–93; PULSE 58–80; RESP 12–16; TEMP 36.4–37.3; O2SAT 95–100
--- NOTE | ~2023-12-07 | XR_ITS ---
EXAMINATION: [id number] DATE: 12/07/2023 09:59 INDICATION: Total right knee arthroplasty. Postop. TECHNIQUE: 2 views of right knee were obtained. COMPARISON: Right knee radiographs 03/03/2023 FINDINGS: There is a total right knee arthroplasty with patellar resurfacing in near-anatomic alignme nt. No fracture. There is sclerosis in distal femur, consistent with osteonecrosis. There is gas in t he knee joint and soft tissues, consistent with recent surgery. IMPRESSION: 1. Total right knee arthroplasty in near-anatomic alignment. 2. Chronic sclerosis in distal femur, consistent with osteonecrosis. Reviewed, dictated and finalized at location B.
[2023-12-07] MEDS: TRANEXAMIC ACID 1,000MG/ISO100 1,000 MG/100 ML BAG 200 MG IVPB (06:30)
[2023-12-07] MEDS: LACTATED RINGERS 1,000 ML 30 ML IV CONT ×2 (06:30→09:42)
[2023-12-07 06:44] LABS: Glucose Point of Care 105 mg/dl (65-105)
--- NOTE | 2023-12-07 07:10 | WPDHPUPDATE1 ---
History and Physical Update Update Date/Time: 12/07/23 07:10 History and Physical has been reviewed, including an updated exam of the patient. There are NO changes in the patient's condition. Risks, benefits, and alternatives have been discussed and questions answered. Patient agrees to proceed with procedure.
[2023-12-07] MEDS: ACETAMINOPHEN 500 MG TABLET 1000 MG PO (07:16)
--- NOTE | 2023-12-07 07:25 | WPDANESEPPF ---
Anes - Initial Pre Proc Eval Procedure: Operation Date: 12/07/23 07:30 Proposed Procedures p Right Custom Total Knee Arthroplasty - Trav Orellana MD Date/Time: 12/07/23 07:25 Surgeon: Trav Orellana MD Pre Op Diagnosis: Prim O A Rt Knee Patient Data Age: 73 Gender: M Height: 1.75 m Weight: 89.6 kg Allergies Allergy/AdvReac Type Severity Reaction Status Date / Time zolpidem AdvReac Unknown Hallucinati Verified 12/07/23 07:17 ng NSAIDS (Non-Steroidal AdvReac Other Verified 12/07/23 07:17 Anti-Inflamma Home Medications Medication Instructions Recorded Confirmed Type atorvastatin 40 mg tablet 40 mg PO DAILY #90 tabs 03/03/22 12/07/23 Rx clopidogrel 75 mg tablet 75 mg PO DAILY 03/03/22 12/07/23 History folic acid 1 mg tablet 1 mg PO DAILY #90 tabs 10/26/22 12/07/23 Rx irbesartan 150 mg tablet 150 mg PO DAILY #90 tabs 07/12/23 12/07/23 Rx acetaminophen 500 mg capsule 1,000 mg PO Q6H PRN Pain 08/09/23 11/26/23 History cyanocobalamin (vitamin B-12) 2,500 mcg PO DAILY 08/09/23 12/07/23 History 2,500 mcg tablet fenofibrate micronized 130 mg 130 mg PO DAILY #90 caps 09/06/23 12/07/23 Rx capsule dapagliflozin propanediol 10 mg 10 mg PO QAM #30 tabs 10/18/23 12/07/23 Rx tablet (Farxiga) ergocalciferol (vitamin D2) 1,250 50,000 unit PO [id number] 10/18/23 12/07/23 History mcg (50,000 unit) capsule ferrous sulfate 325 mg (65 mg 325 mg PO . every other day 10/18/23 12/07/23 History iron) tablet mometasone 0.1 % topical cream 1 applic topical DAILY PRN itching 10/18/23 12/07/23 Rx 2 weeks #45 grams Laboratory Tests 12/07/23 06:40 POC Capillary Glucose 105 mg/dl (65-105) Patient hx anesthesia problems: none Family hx anesthesia problems: none Results Review: All pre-operative results and documents have been reviewed as part of the pre-operative evaluation. [facility] Past Medical History Medical History Acute lateral meniscus tear of left knee Acute medial meniscus tear of left knee Acute non-recurrent maxillary sinusitis Anemia Hemoglobin 11.8 with hematocrit 36.6 and platelets 123 on 10/27/2021. Hemoglobin 11.3 on 09/07/2022. Hemoglobin 12.4 on 03/10/2023. Hemoglobin 10.9, iron 27 with 9% saturation and ferritin 488 with folic acid greater than 20 and vitamin B12 at 444 on 09/14/2023. At low risk for fall B12 deficiency (10/27/21) Level low at 385 on 10/27/2021. Level low at 326 with goal greater than 400 on 09/07/2022. Level low at 247 with hemoglobin 12.4 on 03/10/2023. Level normal at 444 with folic acid 20 on 09/14/2023. Bilateral cataracts Treated surgically, April,. BMI 26.0-26.9,adult BMI 27.0-27.9,adult BMI 28.0-28.9,adult CAD (coronary artery disease) coronary artery disease with stent of the RCA 2019 Chronic kidney disease (10/27/21) BUN 34, creatinine 1.79 with GFR 40 on 10/27/2021. BUN 19, creatinine 1.30 with GFR 54 on 01/21/2022. GFR 22 with creatinine 1.25 with GFR 62 on 02/13/2022. BUN 26, creatinine 1.37 with GFR 55 on 09/07/2022. Chronic kidney disease (CKD) stage G3a/A1, moderately decreased glomerular filtration rate (GFR) between 45-59 mL/min/1.73 square meter and albuminuria creatinine ratio less than 30 mg/g BUN 34, creatinine 1.79 with GFR 40 on 10/27/2021. BUN 19, creatinine 1.30 with GFR 54 on 01/21/2022. GFR 22 with creatinine 1.25 with GFR 62 on 02/13/2022. BUN 26, creatinine 1.37 with GFR 55 on 09/07/2022. BUN 31, creatinine 1.82 with GFR 39 on 03/10/2023. BUN 28, creatinine 1.60 with GFR 43 on 08/09/2023.BUN 28, creatinine 1.80 with GFR 44 on 09/14/2023. Chronic seborrheic dermatitis ear canals Close exposure to COVID-19 virus COVID-19 (12/27/22) to positive 12/29/2022 Diabetes Fasting glucose 123 on 10/27/2021. Hemoglobin A1c 5.5 on 09/17/2021. urine microalbumin ratio 6 10/27/2021. Fasting glucose 70 with hemoglobin A1c 5.6 on 02/13/2022. Fasting glucose 119 with hemoglobin A1c 5.9 on 09/07/2022. Fasting glucose 112 with hemoglobin A1c 6.2 on 05/28/2023. Fasting glucose 98 with hemoglobin A1c 6.2 on 08/09/2023. Fasting glucose 128, hemoglobin A1c 6.8, urine microalbumin ratio of 20 on 09/14/2023. Elevated TSH (09/07/22) TSH elevated at 5.08 on 09/07/2022. TSH 2.98, free T4 0.95, T3 total 56 on 03/10/2023. TSH normal at 4.43 on 09/14/2023. Elevated uric acid in blood Elevated uric acid in blood (10/27/21) Uric acid level elevated at 8.6 on 10/27/2021. Level elevated at 8.4 on 09/07/2022. Normal at 5.2 on 09/14/2023. Encounter for prostate cancer screening PSA 0.4 on 09/14/2023. Encounter to establish care Former smoker HTN (hypertension) Hypercholesterolemia Hyperlipidemia Total cholesterol 189, triglycerides 193, HDL 74, LDL 83 on 10/27/2021. Total cholesterol 174, triglycerides 267, HDL 73 and LDL 60 on 02/13/2022. Cholesterol 174, triglycerides 346, HDL 78 with LDL 45 on 09/07/2022. Cholesterol 232, triglycerides 90, HDL 71, LDL 145 on 03/10/2023. Total cholesterol 150, triglycerides 102, HDL 60, LDL 71 on 09/14/2023. Orthopedic aftercare Osteoarthritis Overweight (BMI 25.0-29.9) Pancytopenia WBC 3.1, hemoglobin 11.3, hematocrit 35.3, platelets 148 on 09/07/2022. WBC 4.6, hemoglobin 13.5, hematocrit 42, platelets 162 on 08/09/2023. WBC 10.5, hemoglobin 10.9, platelets 405 on 09/14/2023. Primary osteoarthritis of left knee SOB (shortness of breath) Vitamin D deficiency due to chronic kidney disease level at 27.9 with PTH at 22 on 09/14/2023. Surgical History Surgical History History of meniscectomy of left knee (~01/27/22) Stented coronary artery Family History Family History Mother Heart disease Sibling Heart disease Grandparent Diabetes mellitus Hypertension Other Family history of congenital heart disease Social History Social History Smoking packs per day: 1 Smoking cigarettes per day: 20.0 Years smoked: 24 Smoking pack-years: 24.00 Smoking status: Former smoker Tobacco type: cigarettes Second hand tobacco smoke exposure: No Smoking end date: 02/09/92 Additional smoking assessment comments: DENIES ANY FORM OF TOBACCO USE Alcohol intake: current Drinks per week: 28 Alcohol use details: 3-4 DRINKS NIGHTLY = VODKA Substance use: never Substance use type: does not use Do You Feel Safe in your Home?: Yes Lack of Transportation: No Lack of Food: Never True Current Housing: I Have Housing Concerned About Future Housing: No Difficulty Paying Gas/Electric Bills: No Difficulty Paying for Meds: No Currently Unemployed: No Education: Master's Degree or Higher Difficulty w/ Childcare or Family Care: No Living arrangements: with family Gender identity (if verbalized by the patient): Male Spiritual care concerns: No Anes - Eval Final PreProcedure Day of Procedure 12/07/23 07:25 Patient weight: normal Heart: regular rate and rhythm Lungs: clear to auscultation Airway: Mallampati scale class II Neurological: alert and oriented Last oral intake: >/= 8 hours ASA classification: III Emergent: no Anesthetic plan: proceed Anesthesia type and monitoring: general LMA and standard monitoring Results Review: All pre-operative results and documents have been reviewed as part of the pre-operative evaluation. Informed Consent: The patient's anesthetic plan and its attendant risks and benefits were discussed with the patient/family/POA. Questions were solicited and answers provided to the satisfaction of the patient/family/POA.
[2023-12-07] MEDS: ceFAZolin 2 GM/D5W 50 ML 2 GM/50 ML BAG IVPB (07:32)
[2023-12-07] MEDS: SCOPOLAMINE 1 MG PATCH 1 PATCH TRANSDERM (07:33)
[2023-12-07] MEDS: SODIUM CHLORIDE 0.9% IV 38.7 ML, MORPHINE SULFATE INJ (*CRX) 2 MG, ROPivacaine HCL 1% 2... INFILTRATE (08:11)
[2023-12-07] MEDS: TRANEXAMIC ACID 1,000 MG/10 ML AMPUL 1000 MG IV PUSH (09:05)
--- NOTE | 2023-12-07 09:42 | P.OP_ITS ---
Procedure Note - Detailed Date of Procedure 12/07/23 Pre-op Diagnosis Right knee degenerative arthritis. Post-op Diagnosis Same Procedure Performed Total knee arthroplasty, right. Surgeon Trav Orellana MD Production Control Expert Linette Ceballos PA-C Anesthesia General and Regional (Subsartorial block.) Findings Severe varus disease. Atypical proximal tibial morphology matched well by the Custom TKA. 6D asymmetric polyethylene inserts balanced the knee well. Description of Procedure Preoperative antibiotics were given. The limb was prepped and draped in the usual sterile fashion with a well-padded tourniquet high on the thigh. The limb was exsanguinated and the tourniquet inflated to 300 mmHg. A longitudinal incision was created just medial to the patella. A trivector approach to the knee was performed. Arthrotomy was taken down through the joint capsule. No significant releases were initially taken. The femur was exposed and the F1 jig was applied. The coring tool was used to remove the cartilage for the F2 jig to sit flush with the bone. The jig was pinned and the distal cut carefully taken. Caliper measurements confirmed appropriate bony resections according to the preoperative templated plan. The F4 cutting jig for the femur was applied, at the standard rotation. The AP and anterior chamfer cuts were taken. The F5 jig was applied and the posterior chamfer cuts were taken. The tibia was prepared using the T1 jig, after removing cartilage for the jig contact points. Proper alignment was checked with the alignment jossue. The tibia was cut using the T1u guide. Gap balancing was performed. Gap measurements were taken and the knee was trialed. Excellent alignment and soft tissue balancing was confirmed. The posterior cruciate ligament was recessed along the proximal tibia. The patella was cut for resurfacing. Three lug holes were drilled. Meniscal remnants were removed. The trial components were assembled. Excellent range of motion and proper soft tissue balancing were confirmed throughout the full range of motion. Patellar tracking was excellent. The knee was copiously irrigated periodically throughout the procedure. The real implants were cemented into position. Excess cement was carefully removed. The wound was closed in layers with interrupted #1 Vicryl suture, 2-0 strata fix suture, 0 strata fix suture, 2-0 strata fix suture. Steri-Strips placed on the skin with the knee flexed. Sterile bulky dressing applied. The patient was brought to the recovery room in stable condition. There were no complications. Physician retail assistant manager, Linette Ceballos PA-C, required for surgery; including patient positioning, draping, tissue retraction, maintaining instrument position, cement removal, wound closure, and dressing placement. Implants [employer] Custom total knee arthroplasty. Cemented. Cruciate retaining. 6D insert. 38 mm oval patella. Estimated Blood Loss 200 Drains No Complications No immediate complications Condition Stable Disposition PACU [facility] Billing Surgery - Charge Forward: Surgery Billing
[2023-12-07] MEDS: fentaNYL CITRATE INJ (*CRX) 100 MCG/2 ML VIAL 25 MCG IV PUSH ×8 (09:49→10:19)
[2023-12-07 09:50] LABS: Glucose Point of Care 150 mg/dl (65-105)
[2023-12-07] MEDS: HYDROmorphone HCL INJ (*CRX) 1 MG/ML SYR 0.5 MG IV PUSH ×4 (10:27→11:07)
[2023-12-07] MEDS: oxyCODONE HCL (*CRX) 5 MG TAB IR PO (11:54)
[2023-12-07] MEDS: ONDANSETRON INJ 4 MG/2 ML VIAL IV PUSH (13:47)
== END 2023-12-07 14:10 | disposition home or self-care (01) ==
PROVIDERS: PCP Family Medicine; Visit Provider Orthopaedic Surgery
PROC: (CPT 27447; principal; 2023-12-07 07:30)
DX: M17.11 Unilateral primary osteoarthritis, right knee (principal); I12.9 Hypertensive chronic kidney disease with stage 1 through stage 4 chronic kidney disease, or unspecified chronic kidney disease; N18.31 Chronic kidney disease, stage 3a; E11.9 Type 2 diabetes mellitus without complications; E78.00 Pure hypercholesterolemia, unspecified; D64.9 Anemia, unspecified; E55.9 Vitamin D deficiency, unspecified; I25.10 Atherosclerotic heart disease of native coronary artery without angina pectoris; L21.9 Seborrheic dermatitis, unspecified; Z79.02 Long term (current) use of antithrombotics/antiplatelets; Z79.84 Long term (current) use of oral hypoglycemic drugs; Z98.890 Other specified postprocedural states; Z95.5 Presence of coronary angioplasty implant and graft; Z87.891 Personal history of nicotine dependence; Z86.79 Personal history of other diseases of the circulatory system; Z82.49 Family history of ischemic heart disease and other diseases of the circulatory system
CPT/HCPCS: 27447; 73560; 82948; 97110; 97161; 97165; A9270; C1713; C1776; J0171; J0690; J1100; J1171; J2003; J2270; J2405; J2704; J2795; J3010; J7050; J7120